=== PATIENT | female | born 1990 | race Caucasian/White ===

== ENCOUNTER → 2018-05-10 | Outpatient (CLI) | payer OTHER ==
--- NOTE | 2018-05-10 10:55 | US ---
EXAMINATION TYPE: US transvaginal DATE OF EXAM: 05/10/2018 COMPARISON: US CLINICAL HISTORY: R10.2 Pelvic Pain. Patient states sharp pain during intercourse. TECHNIQUE: Transvaginal (TV). Date of LMP: 04/25/2018 EXAM MEASUREMENTS: Uterus: 9.4 x 5.0 x 5.7 cm Endometrial Stripe: 1.0 cm Right Ovary: 2.9 x 2.4 x 3.3 cm Left Ovary: 3.7 x 2.1 x 1.4 cm 1. Uterus: Anteverted wnl 2. Endometrium: wnl 3. Right Ovary: dominant follicle measures 2.1 x 1.6 x 2.0 cm. 4. Left Ovary: wnl 5. Bilateral Adnexa: wnl 6. Posterior cul-de-sac: small amount of free fluid. IMPRESSION: 1. Dominant follicle right ovary. 2 small amount of free fluid identified.
== END | disposition home or self-care (01) ==
LOC: RADUSWWP 09:42
PROVIDERS: ATTEND Obstetrics & Gynecology
DX: R10.2 Pelvic and perineal pain (principal)
CPT/HCPCS: 76830

== ENCOUNTER → 2019-05-01 | Outpatient (CLI) | payer OTHER ==
--- NOTE | 2019-05-02 11:34 | US ---
EXAMINATION TYPE: Transabdominal DATE OF EXAM: 05/01/2019 2:42 PM COMPARISON: NONE CLINICAL HISTORY: O46.91 bleeding. Bleeding. Patient states positive test. No beta HCG avai lable. EXAM PERFORMED: Transabdominal (TA) EXAM MEASUREMENTS: GESTATIONAL AGE / DATING Physician Established: Not yet established Dates by LMP: LMP unknown Dates by First Scan: No previous this is first scan Dates by Current Scan for: No IUP seen at this time MATERNAL ANATOMY Uterus: 9.3 x 5.3 x 5.8 cm Right Ovary: 1.7 x 1.1 x 1.3 cm Left Ovary: 2.1 x 1.6 x 1.9 cm Post CDS / Adnexa: wnl Presence of free fluid: no Presence of corpus luteal cyst: no Presence of subchorionic bleed: no GESTATION / SURVEY IUP: No IUP seen at this time Date of LMP: unknown Beta HcG (if available): Not available at this time IMPRESSION: 1. Normal-appearing pelvic ultrasound. 2. No intrauterine gestation identified at this time. Correlate with the beta hCG.
== END | disposition home or self-care (01) ==
LOC: RADUSWWP 14:23
PROVIDERS: ATTEND Obstetrics & Gynecology
DX: O46.91 Antepartum hemorrhage, unspecified, first trimester (principal); Z3A.00 Weeks of gestation of pregnancy not specified
CPT/HCPCS: 76801

== ENCOUNTER → 2019-05-02 | Outpatient (CLI) | payer OTHER | END | disposition home or self-care (01) | LOC: LABWHC1 15:28 | PROVIDERS: ATTEND Obstetrics & Gynecology | DX: Z34.80 Encounter for supervision of other normal pregnancy, unspecified trimester (principal) | CPT/HCPCS: 36415; 84702 ==

== ENCOUNTER → 2019-05-04 | Outpatient (CLI) | payer OTHER | LOC: LABWHC1 11:41 | PROVIDERS: ATTEND Obstetrics & Gynecology | DX: Z34.80 Encounter for supervision of other normal pregnancy, unspecified trimester (principal); Z3A.00 Weeks of gestation of pregnancy not specified | CPT/HCPCS: 36415; 84702 ==

== ENCOUNTER → 2019-05-08 | Outpatient (CLI) | payer OTHER ==
[2019-05-08 10:07] LABS: Albumin 4.4 g/dL (3.5-5.0); Bilirubin, Delta 0.1 mg/dL (0.0-0.2); Bilirubin,Unconjugated 0.5 mg/dL (0.0-1.1); Total Bilirubin 0.6 mg/dL (0.2-1.3); Total Protein 7.1 g/dL (6.3-8.2)
[2019-05-08 10:09] LABS: HCT 39.2 % (34.0-46.0); HGB 13.3 gm/dL (11.4-16.0); MCH 30.6 pg (25.0-35.0); MCV 89.8 fL (80.0-100.0); Mean Platelet Volume 7.2; Platelet Count 192 k/uL (150-450); RBC 4.36 m/uL (3.80-5.40); RDW 11.9 % (11.5-15.5); WBC 5.7 k/uL (3.8-10.6)
[2019-05-08 10:23] LABS: HCG,Quantitative Serum 9407.1 mIU/mL
--- NOTE | 2019-05-08 10:27 | US ---
"EXAMINATION TYPE: US transvaginal DATE OF EXAM: 05/08/2019 COMPARISON: NONE CLINICAL HISTORY: O02.1 Missed . patient had LMP in February after she started control, b leeding started 1 week ago, beta HCG to be drawn today, no pain but still bleeding. TECHNIQUE: TV. Transvaginal sonographic images Date of LMP: February 2019 EXAM MEASUREMENTS: Uterus: 9.9 x 5.9 x 5.3 cm Endometrial Stripe: 0.6 cm Right Ovary: 2.7 x 1.7 x 1.2 cm Left Ovary: 2.5 x 2.3 x 2.3 cm 1. Uterus: Anteverted wnl 2. Endometrium: wnl 3. Right Ovary: wnl, posterior to fundal UT 4. Left Ovary: 2.2cm complex lesion that may represent a corpus luteal cyst versus hemorrhagic cyst 5. Bilateral Adnexa: 2.8cm complex mass noted inferior to left ovary, unsure if lesion is portion of left ovary or this could represent ectopic or paraovarian complex cyst. 6. Posterior cul-de-sac: wnl IMPRESSION: 2.8 cm complex mass that cannot be certainly included in the left ovarian measurement. Th is could be paraovarian in represent an ectopic or complex paraovarian cyst or may be part of the ovary. Correlation with serum beta hCG is recommended. A [place] level critical message alert has been initiated for Esvin Arriaga MD via the [employer] | Critical Results System on 05/08/2019 10:25 AM. This message alert has been sent to Esvin robertson MD via the preferences provided by the clinician for the receipt of Radiology Critical Findings. Message ID [id number]."
== END | disposition home or self-care (01) ==
LOC: RADUSWWP 08:20
PROVIDERS: ATTEND Obstetrics & Gynecology
DX: O02.1 Missed abortion (principal); O20.0 Threatened abortion
CPT/HCPCS: 76830; 80076; 84702; 85027

== ENCOUNTER → 2019-05-08 | Outpatient (CLI) | payer OTHER ==
[~2019-05-08] MED LIST: METHOTREXATE SODIUM (PF) 25 MG/ML 2 ML VIAL IM ONE
[2019-05-08 11:41] VITALS: BP 130/88; PULSE 84; RESP 14; TEMP 97.7
== END | disposition home or self-care (01) ==
LOC: PROCWHC3 11:26
PROVIDERS: ATTEND Obstetrics & Gynecology
DX: O00.90 Unspecified ectopic pregnancy without intrauterine pregnancy (principal)
CPT/HCPCS: 96402; J9260

== ENCOUNTER → 2019-05-14 | Outpatient (CLI) | payer OTHER ==
[2019-05-14 08:05] LABS: HCT 37.3 % (34.0-46.0); HGB 12.7 gm/dL (11.4-16.0); MCHC 34.1 g/dL (31.0-37.0); MCV 90.7 fL (80.0-100.0); Mean Platelet Volume 7.6; Platelet Count 159 k/uL (150-450); RBC 4.11 m/uL (3.80-5.40); RDW 12.2 % (11.5-15.5); WBC 5.5 k/uL (3.8-10.6)
== END | disposition home or self-care (01) ==
LOC: LABWHC1 07:47
PROVIDERS: ATTEND Obstetrics & Gynecology
DX: O00.90 Unspecified ectopic pregnancy without intrauterine pregnancy (principal)
CPT/HCPCS: 36415; 84702; 85027

== ENCOUNTER → 2019-05-21 | Outpatient (CLI) | payer OTHER | LOC: LABWHC1 16:46 | PROVIDERS: ATTEND Obstetrics & Gynecology | DX: O00.90 Unspecified ectopic pregnancy without intrauterine pregnancy (principal); Z3A.00 Weeks of gestation of pregnancy not specified | CPT/HCPCS: 36415; 84702 ==

== ENCOUNTER 2019-05-27 11:28 | Inpatient (IN) | payer OTHER ==
[2019-05-27] MEDS ORDERED: SODIUM CHLORIDE 0.9% 1,000 ML IV ONE ×2 (11:57)
[2019-05-27] MEDS ORDERED: MORPHINE SULFATE 4 MG/ML SYRINGE IV STA (11:57)
--- NOTE | 2019-05-27 12:00 | ED ---
Abdominal Pain HPI <Marcus Hernandez - Last Filed: 05/27/19 14:41> - General Source: patient, RN notes reviewed, old records reviewed Mode of arrival: ambulatory Limitations: no limitations <Mary Anne Madrid - Last Filed: 05/27/19 15:36> - General Chief Complaint: Abdominal Pain Stated Complaint: ectopic Time Seen by Provider: 05/27/19 11:53 - History of Present Illness Initial Comments: This Patient is a 28-year-old female, female. She presents today for concerns for severe left-sided lower abdominal pain that started today while eating breakfast. Patient reports that she was diagnosed with ectopic and was given methotrexate approximately one week ago. She reports that after her methotrexate administration her hCG levels have diminished and were down to 1600 on her last check. Patient reports that she was doing well up until today. She states that she developed sharp pain on her left side, and has the pain into her vagina and rectum. Patient complains of some nausea and feeling generally unwell and lightheaded. (Mary Anne Madrid) - Related Data Home Medications Medication Instructions Recorded Confirmed Acetaminophen Tab [Tylenol Tab] 1,000 mg PO Q4H PRN 05/27/19 05/27/19 Allergies Allergy/AdvReac Type Severity Reaction Status Date / Time No Known Allergies Allergy Verified 05/27/19 13:22 Review of Systems ROS Other: All systems not noted in ROS Statement are negative. <Marcus Hernandez - Last Filed: 05/27/19 14:41> ROS Other: All systems not noted in ROS Statement are negative. <Mary Anne Madrid - Last Filed: 05/27/19 15:36> ROS Statement: Those systems with pertinent positive or pertinent negative responses have been documented in the HPI. Past Medical History Past Medical History: No Reported History Additional Past Medical History / Comment(s): Ectopic 04/2019 History of Any Multi-Drug Resistant Organisms: None Reported Past Surgical History: No Surgical Hx Reported Past Anesthesia/Blood Transfusion Reactions: No Reported Reaction Past Psychological History: No Psychological Hx Reported Smoking Status: Former smoker - Past Family History Father Family Medical History: No Reported History <Mary Anne Madrid - Last Filed: 05/27/19 15:36> General Exam Limitations: no limitations General appearance: alert, in no apparent distress Head exam: Present: atraumatic, normocephalic, normal inspection Eye exam: Present: normal appearance, PERRL, EOMI. Absent: scleral icterus, conjunctival injection, periorbital swelling ENT exam: Present: normal exam, mucous membranes moist Neck exam: Present: normal inspection. Absent: tenderness, meningismus, lymphadenopathy Respiratory exam: Present: normal lung sounds bilaterally. Absent: respiratory distress, wheezes, rales, rhonchi, stridor Cardiovascular Exam: Present: regular rate, normal rhythm, normal heart sounds. Absent: systolic murmur, diastolic murmur, rubs, gallop, clicks GI/Abdominal exam: Present: soft, tenderness (Superpubic and left lower quadrant tenderness.), normal bowel sounds. Absent: distended, guarding, rebound, rigid External exam: Present: normal external exam. Absent: erythema Speculum exam: Present: normal speculum exam. Absent: cervical discharge, vaginal bleeding, foreign body By manual exam: Present: adnexal tenderness, adnexal mass (Patient had some m oderate tenderness over the left and right adnexa.) Extremities exam: Present: normal inspection, full ROM, normal capillary refill. Absent: tenderness, pedal edema, joint swelling, calf tenderness Back exam: Present: normal inspection Neurological exam: Present: alert, oriented X3, CN II-XII intact Psychiatric exam: Present: normal affect, normal mood Skin exam: Present: warm, dry, intact, normal color. Absent: rash <Mary Anne Madrid - Last Filed: 05/27/19 15:36> - General Exam Comments Initial Comments: 28-year-old female. Patient appears in moderate discomfort. (Mary Anne Madrid) Course Vital Signs 05/27/19 05/27/19 05/27/19 11:34 12:05 12:30 Temperature 97.8 F Pulse Rate 88 82 85 Respiratory 20 18 18 Rate Blood Pressure 99/44 137/81 137/81 O2 Sat by Pulse 100 99 100 Oximetry 05/27/19 05/27/19 05/27/19 13:00 13:30 14:00 Temperature Pulse Rate 80 76 80 Respiratory 18 18 18 Rate Blood Pressure 125/77 122/76 115/84 O2 Sat by Pulse 100 99 99 Oximetry 05/27/19 05/27/19 14:30 15:10 Temperature 98.2 F Pulse Rate 82 89 Respiratory 16 18 Rate Blood Pressure 103/62 128/75 O2 Sat by Pulse 99 98 Oximetry Medical Decision Making - Lab Data Result diagrams: 05/27/19 12:00 05/27/19 12:00 <Marcus Hernandez - Last Filed: 05/27/19 14:41> - Lab Data Result diagrams: 05/27/19 12:00 05/27/19 12:00 - Radiology Data Radiology results: report reviewed <Mary Anne Madrid - Last Filed: 05/27/19 15:36> - Medical Decision Making Patient reevaluated by myself, Dr. Hernandez. Patient states discomfort is moderate at this time. Abdomen is soft with mild to moderate tenderness lower abdomen/pelvis, more so on the left. Ultrasound reports reviewed. Beta hCG reviewed. Case was discussed in detail with Dr. Arriaga who is familiar with this patient and will come evaluate. (Marcus Hernandez) Patient is a 28-year-old female, . Currently undergoing treatment for ectopic . She had a dose of methotrexate approximately 2 weeks ago on her last hCG was 1600. She complains of sharp left-sided abdominal pain today. Instructed to emergency department with a low blood pressure of 90/45. She is given 2 L bolus and blood pressure came up. Initial lab work shows hCG level is dropped to 600. Hemoglobin is stable. She'll complain does show some concern for free fluid within the pelvis, and adnexal cystic like mass measuring 4 cm on the left and 6 cm on the right. states that she has continued to have the pain. She did receive 2 separate doses of 4 mg of morphine. We contacted patient's director of perioperative services Dr. Chapa who came to the emergency department to evaluate the Patient. Patient will admitted at this time and going to the OR for concern for ruptured ectopic . Patient is agreeable to treatment plan and understands plan. She is going directly to OR. (Mary Anne Madrid) - Lab Data Lab Results 05/27/19 05/27/19 05/27/19 Range/Units 12:00 12:00 12:00 WBC 4.9 (3.8-10.6) k/uL RBC 4.53 (3.80-5.40) m/uL Hgb 13.8 (11.4-16.0) gm/dL Hct 40.8 (34.0-46.0) % MCV 90.2 (80.0-100.0) fL MCH 30.5 (25.0-35.0) pg MCHC 33.8 (31.0-37.0) g/dL RDW 12.4 (11.5-15.5) % Plt Count 178 (150-450) k/uL Neutrophils % 53 % Lymphocytes % 35 % Monocytes % 5 % Eosinophils % 4 % Basophils % 1 % Neutrophils # 2.6 (1.3-7.7) k/uL Lymphocytes # 1.7 (1.0-4.8) k/uL Monocytes # 0.2 (0-1.0) k/uL Eosinophils # 0.2 (0-0.7) k/uL Basophils # 0.1 (0-0.2) k/uL PT (9.0-12.0) sec INR (<1.2) APTT (22.0-30.0) sec Sodium 140 (137-145) mmol/L Potassium 4.3 (3.5-5.1) mmol/L Chloride 105 (98-107) mmol/L Carbon Dioxide 27 (22-30) mmol/L Anion Gap 8 mmol/L BUN 15 (7-17) mg/dL Creatinine 0.88 (0.52-1.04) mg/dL Est GFR (CKD-EPI)AfAm >90 (>60 ml/min/1.73 sqM) Est GFR (CKD-EPI)NonAf 90 (>60 ml/min/1.73 sqM) Glucose 98 (74-99) mg/dL Calcium 9.5 (8.4-10.2) mg/dL Total Bilirubin 0.7 (0.2-1.3) mg/dL AST 21 (14-36) U/L ALT 33 (9-52) U/L Alkaline Phosphatase 43 (38-126) U/L Total Protein 7.1 (6.3-8.2) g/dL Albumin 4.5 (3.5-5.0) g/dL HCG, Quant 663.5 mIU/mL Urine Color Urine Appearance (Clear) Urine pH (5.0-8.0) Ur Specific [place] (1.001-1.035) Urine Protein (Negative) Urine Glucose (UA) (Negative) Urine Ketones (Negative) Urine Blood (Negative) Urine Nitrite (Negative) Urine Bilirubin (Negative) Urine Urobilinogen (<2.0) mg/dL Ur Leukocyte Esterase (Negative) Urine WBC (0-5) /hpf Urine Bacteria (None) /hpf Urine Mucus (None) /hpf Blood Type O Positive Blood Type Recheck O Pos Bld Type Recheck Status No Antibody Screen NEGATIVE Spec Expiration Date 05/30/2019 - 229905/27/19 05/27/19 Range/Units 12:00 13:21 WBC (3.8-10.6) k/uL RBC (3.80-5.40) m/uL Hgb (11.4-16.0) gm/dL Hct (34.0-46.0) % MCV (80.0-100.0) fL MCH (25.0-35.0) pg MCHC (31.0-37.0) g/dL RDW (11.5-15.5) % Plt Count (150-450) k/uL Neutrophils % % Lymphocytes % % Monocytes % % Eosinophils % % Basophils % % Neutrophils # (1.3-7.7) k/uL Lymphocytes # (1.0-4.8) k/uL Monocytes # (0-1.0) k/uL Eosinophils # (0-0.7) k/uL Basophils # (0-0.2) k/uL PT 10.0 (9.0-12.0) sec INR 0.9 (<1.2) APTT 24.9 (22.0-30.0) sec Sodium (137-145) mmol/L Potassium (3.5-5.1) mmol/L Chloride (98-107) mmol/L Carbon Dioxide (22-30) mmol/L Anion Gap mmol/L BUN (7-17) mg/dL Creatinine (0.52-1.04) mg/dL Est GFR (CKD-EPI)AfAm (>60 ml/min/1.73 sqM) Est GFR (CKD-EPI)NonAf (>60 ml/min/1.73 sqM) Glucose (74-99) mg/dL Calcium (8.4-10.2) mg/dL Total Bilirubin (0.2-1.3) mg/dL AST (14-36) U/L ALT (9-52) U/L Alkaline Phosphatase (38-126) U/L Total Protein (6.3-8.2) g/dL Albumin (3.5-5.0) g/dL HCG, Quant mIU/mL Urine Color Yellow Urine Appearance Clear (Clear) Urine pH 6.0 (5.0-8.0) Ur Specific [place] 1.012 (1.001-1.035) Urine Protein Negative (Negative) Urine Glucose (UA) Negative (Negative) Urine Ketones Negative (Negative) Urine Blood Negative (Negative) Urine Nitrite Negative (Negative) Urine Bilirubin Negative (Negative) Urine Urobilinogen <2.0 (<2.0) mg/dL Ur Leukocyte Esterase Trace H (Negative) Urine WBC 1 (0-5) /hpf Urine Bacteria Rare H (None) /hpf Urine Mucus Rare H (None) /hpf Blood Type Blood Type Recheck Bld Type Recheck Status Antibody Screen Spec Expiration Date Critical Care Time Critical Care Time: Yes Total Critical Care Time: 30 <Mary Anne Madrid - Last Filed: 05/27/19 15:36> Critical Care Time: 30 minutes of critical care time was completed with managing patient's care, consulting Patient specialist regards to concern for ruptured ectopic . Patient is going directly to OR. (Mary Anne Madrid) Disposition <Marcus Hernandez - Last Filed: 05/27/19 14:41> Is patient prescribed a controlled substance at d/c from ED?: No Time of Disposition: 15:36 <Mary Anne Madrid - Last Filed: 05/27/19 15:36> Clinical Impression: Ectopic , Free fluid in pelvis Disposition: ADMITTED IP TO THIS HOSP Condition: Good Referrals: Ángela Andrews MD [Primary Care Provider] - 1-2 days
[2019-05-27 12:17] LABS: Basophils # (A) 0.1 k/uL (0-0.2); Basophils % (A) 1 %; Eosinophils # (A) 0.2 k/uL (0-0.7); Eosinophils % (A) 4 %; HCT 40.8 % (34.0-46.0); HGB 13.8 gm/dL (11.4-16.0); Lymphocytes # (A) 1.7 k/uL (1.0-4.8); Lymphocytes % (A) 35 %; MCH 30.5 pg (25.0-35.0); MCHC 33.8 g/dL (31.0-37.0); MCV 90.2 fL (80.0-100.0); Mean Platelet Volume 8.1; Monocytes # (A) 0.2 k/uL (0-1.0); Monocytes % (A) 5 %; Neutrophils # (A) 2.6 k/uL (1.3-7.7); Neutrophils % (A) 53 %; Platelet Count 178 k/uL (150-450); RBC 4.53 m/uL (3.80-5.40); RDW 12.4 % (11.5-15.5); WBC 4.9 k/uL (3.8-10.6)
[2019-05-27 12:26] LABS: INR 0.9 (<1.2); Partial Thromboplastin Time 24.9 sec (22.0-30.0)
[2019-05-27 12:31] LABS: ALT 33 U/L (9-52); AST 21 U/L (14-36); African American GFR (CKD) >90 (>60 ml/min/1.73 sqM); Albumin 4.5 g/dL (3.5-5.0); Alkaline Phosphatase 43 U/L (38-126); Anion Gap 8 mmol/L; Blood Urea Nitrogen 15 mg/dL (7-17); Calcium 9.5 mg/dL (8.4-10.2); Carbon Dioxide 27 mmol/L (22-30); Chloride 105 mmol/L (98-107); Glucose 98 mg/dL (74-99); Non-African American GFR(CKD) 90 (>60 ml/min/1.73 sqM); Potassium 4.3 mmol/L (3.5-5.1); Sodium 140 mmol/L (137-145); Total Bilirubin 0.7 mg/dL (0.2-1.3); Total Protein 7.1 g/dL (6.3-8.2)
[2019-05-27 12:47] LABS: HCG,Quantitative Serum 663.5 mIU/mL
[2019-05-27 13:47] LABS: Appearance,Urine Clear (Clear); Bacteria,Urine Rare /hpf; Bilirubin,Urine Negative (Negative); Blood,Urine Negative (Negative); Color,Urine Yellow; Glucose,Urine (UA) Negative (Negative); Ketones,Urine Negative (Negative); Leukocyte Esterase,Urine Trace (Negative); Mucus,Urine Rare /hpf; Nitrite,Urine Negative (Negative); Protein,Urine Negative (Negative); Specific Gravity,Urine 1.012 (1.001-1.035); Urobilinogen,Urine <2.0 mg/dL (<2.0); WBC,Urine 1 /hpf (0-5)
--- NOTE | 2019-05-27 13:56 | US ---
EXAMINATION TYPE: Transabdominal DATE OF EXAM: 05/27/2019 1:18 PM COMPARISON:US CLINICAL HISTORY: pain, hx ectopic. left abdominal pain. Patient has been on methotrexate for 2 and 1/2 weeks for known ectopic, currently came to ER for rose re pelvic pain. EXAM PERFORMED: Transvaginal (TV) and Transabdominal (TA) EXAM MEASUREMENTS: GESTATIONAL AGE / DATING Physician Established: Not established ( Dates by LMP: LMP unknown Dates by First Scan: none ( Dates by Current Scan for: none MATERNAL ANATOMY Uterus: 9.6 x 4.6 x 6.1cm Right Ovary: 3.1 x 2.2 x 2.9cm Left Ovary: 2.8 x 2.1 x 2.5cm Post CDS / Adnexa: In right adnexa on transabdominal scan there appears to be a 6.6 x 3.3 x 6.0 cm co mplex mass, this could not be appreciated transvaginally. The cul de sac shows complex debris. In the left adnexa there is either a mass adjacent to or part of the left ovary. The mass measures 4.2 x 3. 1 x 3.3cm. Technologist unable to discern whether this is a part of the ovary or adjacent to. Presence of free fluid: mild fluid seen in right adnexa and small amount seen in left GESTATION / SURVEY IUP: no IUP identified Beta HcG (if available): Patient states this was going down currently 663. IMPRESSION: 1. WE HAVE NOT IDENTIFIED INTRAUTERINE GESTATION. 2. WE HAVE NOT EXCLUDED ECTOPIC IN EITHER ADNEXA. FURTHER FOLLOW-UP AND SERIAL BETA HCGS WO ULD BE SUGGESTED.
[2019-05-27] MEDS ORDERED: KETOROLAC 30 MG/ML 1 ML VIAL IVP STA (13:59)
[2019-05-27] MEDS ORDERED: MORPHINE SULFATE 4 MG/ML SYRINGE IVP STA ×2 (13:59)
--- NOTE | 2019-05-27 15:41 | P.HPOB ---
History of Present Illness H&P Date: 05/27/19 Chief Complaint: Lower abdominal pain, known ectopic This patient is a pleasant 28-year-old 2 para 1 female who was initially diagnosed several weeks ago with an ectopic . Patient's beta-hCG at that time was well over 9000 and she was clinically stable. Patient was given 100 mg of methotrexate. The first 2 weeks patient's initial response was excellent with decreasing beta hCGs. Patient also remained pain free. Patient states that this morning she began having onset of severe lower abdominal pain. She presented to the emergency department was found to have what appears to be rupturing ectopic with some most likely free fluid in her belly. Hemoglobin is stable. Vital signs are stable this time. Review of Systems Constitutional: Reports as per HPI Genitourinary: Reports as per HPI, Reports pelvic pain Past Medical History Past Medical History: No Reported History Additional Past Medical History / Comment(s): Ectopic 04/2019 History of Any Multi-Drug Resistant Organisms: None Reported Past Surgical History: No Surgical Hx Reported Past Anesthesia/Blood Transfusion Reactions: No Reported Reaction Past Psychological History: No Psychological Hx Reported Smoking Status: Former smoker Past Drug Use History: None Reported - Past Family History Father Family Medical History: No Reported History Medications and Allergies Home Medications Medication Instructions Recorded Confirmed Type Acetaminophen Tab [Tylenol Tab] 1,000 mg PO Q4H PRN 05/27/19 05/27/19 History Allergies Allergy/AdvReac Type Severity Reaction Status Date / Time No Known Allergies Allergy Verified 05/27/19 13:22 Exam Vital Signs Temp Pulse Resp BP Pulse Ox 05/27/19 15:10 98.2 F 89 18 128/75 98 05/27/19 14:30 82 16 103/62 99 05/27/19 14:00 80 18 115/84 99 05/27/19 13:30 76 18 122/76 99 05/27/19 13:00 80 18 125/77 100 05/27/19 12:30 85 18 137/81 100 05/27/19 12:05 82 18 137/81 99 05/27/19 11:34 97.8 F 88 20 99/44 100 Intake and Output 05/27/19 05/27/19 05/27/19 06:59 14:59 22:59 Other: Weight 95.254 kg - OBG Physical Exam Abdomen: Abdomen is tender to palpation. There is guarding but no rebound. Results Result Diagrams: 05/27/19 12:00 05/27/19 12:00 Abnormal Lab Results - Last 24 Hours (Table) 05/27/19 Range/Units 13:21 Ur Leukocyte Esterase Trace H (Negative) Urine Bacteria Rare H (None) /hpf Urine Mucus Rare H (None) /hpf Assessment and Plan Assessment: This is a pleasant 28-year-old 2 para 1 female with known ectopic who has developed severe lower abdominal pain and has failed medical therapy. Due to concern for rupturing ectopic at this time are going to proceed with exploratory laparotomy, possible salpingitis to me, possible salpingectomy. Patient understands I will do my best to preserve one or both of her tubes, however most likely she will need one tube removed. She understands the risks of the surgery including risks of infection, bleeding, possible DVT/PE. All the patient's questions been answered written consent is obtained. (1) Ectopic Current Visit: Yes Status: Acute Code(s): O00.90 - UNSPECIFIED ECTOPIC PREG RONEN WITHOUT INTRAUTERINE SNOMED Code(s): 34676310
[2019-05-27] MEDS ORDERED: ONDANSETRON 4 MG/2 ML VIAL ONE (16:08)
[2019-05-27] MEDS ORDERED: ROCURONIUM BROMIDE 10 MG/ML 10 ML VIAL IV ONE (16:08)
[2019-05-27] MEDS ORDERED: DEXAMETHASONE SOD PHOS (MDV) 100 MG/10 ML VIAL ONE (16:08)
[2019-05-27] MEDS ORDERED: PROPOFOL 10 MG/ML 20 ML VIAL IV ONE (16:08)
[2019-05-27] MEDS ORDERED: SUCCINYLCHOLINE CHLORIDE 100 MG/5 ML SYR IV ONE (16:08)
[2019-05-27] MEDS ORDERED: GLYCOPYRROLATE 0.2 MG/ML 2 ML VIAL ONE (16:08)
[2019-05-27] MEDS ORDERED: fentaNYL (PF) 50 MCG/ML 2 ML AMP ONE (16:08)
[2019-05-27] MEDS ORDERED: MIDAZOLAM 2 MG/2 ML VIAL ONE (16:08)
[2019-05-27] MEDS ORDERED: HYDROmorphone (PF) 1 MG/ML ONE (16:08)
[2019-05-27] MEDS ORDERED: LIDOCAINE 1% INJ 10MG/ML (20 ML MDV) ONE (16:08)
[2019-05-27] MEDS ORDERED: NEOSTIGMINE 1 MG/ML 10 ML VIAL ONE (16:08)
[2019-05-27] MEDS ORDERED: IV FLUID CONTINUATION 200 ML IV ONE (16:11)
[2019-05-27] MEDS ORDERED: METOCLOPRAMIDE 5 MG/ML 2 ML VIAL IVP ONE (16:15)
[2019-05-27] MEDS ORDERED: FAMOTIDINE 20 MG/2 ML VIAL IVP ONE (16:15)
[2019-05-27] MEDS ORDERED: LACTATED RINGERS 1,000 ML IV ONE (16:25)
[2019-05-27] MEDS ORDERED: MEPERIDINE 50 MG/ML SYRINGE IVP ONE (17:13)
[2019-05-27] MEDS ORDERED: HYDROmorphone 1 MG/ML 1 ML SYRINGE IVP ONE ×2 (17:17→17:23)
--- NOTE | 2019-05-27 17:18 | P.OP ---
Date of Procedure: 05/27/19 Preoperative Diagnosis: Abdominal pain with suspected ruptured ectopic failed medical therapy Postoperative Diagnosis: Same Procedure(s) Performed: Exploratory laparotomy with left salpingectomy, decision of ectopic , evacuation of hemoperitoneum Anesthesia: VERO Surgeon: Esvin Arriaga Estimated Blood Loss (ml): 25 Pathology: other (Left fallopian tube with ectopic ) Condition: stable Disposition: PACU Indications for Procedure: Please see dictated H&P for intimate details of this patient's admission. Brief summary this is a pleasant 28-year-old 2 para 1 female with known left ectopic who is status post methotrexate treatment approximately 3 weeks ago. Patient is doing well with decreasing beta hCGs but developed sudden onset of lower abdominal pain that earlier this morning. Patient presents emergency department was found to have what appears to be hemoperitoneum. Due to failed medical therapy and recommended proceed with surgical excision of this . Patient understands this surgery and risks including risks of in fection, bleeding, possible injury to bowel, bladder, vessels, and/or other organs. All the patient's questions are answered written consent is obtained. Operative Findings: This patient had approximately 2 cm left ectopic that was bleeding out the distal portion of fallopian tube. She approximately 150 mL of hemoperitoneum. Description of Procedure: This patient is taken to the operating room where she is laid in the supine position. She subsequently undergoes general endotracheal anesthesia without incident. With an adequate level of anesthesia she has a Campos catheter placed to straight drain. She then has abdominal prep and drape. Scalpels and taken a Pfannenstiel skin incision is made. A second scalpel is taken down the fascia the fascia scored with scalpel. Fascial incision extended bilaterally using the [place] scissors. Fascia is then dissected off the rectus muscles sharply. Rectus muscles are and the peritoneum identified and entered sharply. Peritoneal incision extended superior and inferior without difficulty. At this time is noted to be copious amount of blood in the abdomen which is evacuated. With this done the [place] retractor is placed gently. Bladder blade is placed. Visualization manually shows ectopic and left fallopian tube. Using a wet laparotomy sponge mobilize the bowels out of the pelvic field. Salazar is used to grab the left fallopian tube. There is approximately 8 to have centimeter ectopic appears be bleeding out the distal portion. The r ight fallopian tube appears completely normal. The pelvis appears completely normal as ovaries appear completely normal. This point is evident to remove the fallopian tube. 2 Heaneys are placed across the fallopian tube and the left fallopian tube with associated ectopic is excised. Using 0 Vicryl suture I do a locking stitch 2. Excellent hemostasis is noted. This time I copiously irrigated the pelvis. All clots that are able to removed our. Suspect the surgical site and the rest of the pelvis again all appears hemostatic. This point the procedure is ended. The laparotomy sponges removed. Cher retractor is removed. The rectus muscles reapproximated in 0 Vicryl interrupted fashion. Fascial incision is then closed using 0 PDS. Fascial incision is intact and hemostatic. Subcutaneous tissues and closed using a 3-0 Vicryl. Skin is and closed using karley. All counts are correct 3. There are no complications. Patient's taken recovery room satisfactory condition.
[2019-05-27] MEDS ORDERED: NALOXONE 0.4 MG/ML 1 ML VIAL IV PRN (17:46)
[2019-05-27] MEDS ORDERED: ONDANSETRON 4 MG/2 ML VIAL IVP PRN (17:46)
[2019-05-27] MEDS ORDERED: HYDROmorphone PCA 10 MG/50 ML BAG IV PRN (17:46)
[2019-05-27] MEDS ORDERED: diphenhydrAMINE 50 MG/ML 1 ML VIAL IVP PRN (17:46)
[2019-05-27] MEDS ORDERED: SIMETHICONE 80 MG CHEWABLE PO PRN (17:46)
[2019-05-27] MEDS ORDERED: IBUPROFEN 600 MG TAB PO PRN (17:46)
[2019-05-27 17:56] VITALS: BMI 32.8
[2019-05-27] MEDS: LACTATED RINGERS 1,000 ML IV SCH (19:08)
[2019-05-27] MEDS: KETOROLAC 30 MG/ML 1 ML VIAL IVP PRN (19:31)
[2019-05-28] MEDS: KETOROLAC 30 MG/ML 1 ML VIAL IVP PRN ×3 (01:47→14:44)
[2019-05-28] MEDS: LACTATED RINGERS 1,000 ML IV SCH (03:28)
--- NOTE | 2019-05-28 06:29 | P.PN ---
Progress Note - Text Progress Note Date: 05/28/19 Postoperative day #1. Patient is resting without complaints. Vital signs are stable she's afebrile. Incision is intact and dry. CBC is pending at time this dictation. Plan today is to encourage ambulation, advanced to a regular diet, check a CBC, allow the patient to shower. Anticipate discharge tomorrow if patient continues to do well.
[2019-05-28 06:55] LABS: Basophils % (A) 0 %; Eosinophils % (A) 0 %; HGB 11.1 gm/dL (11.4-16.0); Lymphocytes # (A) 0.7 k/uL (1.0-4.8); Lymphocytes % (A) 8 %; MCH 30.4 pg (25.0-35.0); MCHC 33.7 g/dL (31.0-37.0); MCV 90.2 fL (80.0-100.0); Mean Platelet Volume 8.3; Monocytes # (A) 0.5 k/uL (0-1.0); Monocytes % (A) 6 %; Neutrophils # (A) 7.4 k/uL (1.3-7.7); Neutrophils % (A) 85 %; Platelet Count 169 k/uL (150-450); RBC 3.66 m/uL (3.80-5.40); RDW 12.3 % (11.5-15.5); WBC 8.7 k/uL (3.8-10.6)
[2019-05-28] MEDS: HYDROcodone/APAP 5-325MG 1 EACH TAB PO PRN (09:35)
[2019-05-29] MEDS: LACTATED RINGERS 1,000 ML IV SCH (01:15)
[2019-05-29] MEDS: HYDROcodone/APAP 5-325MG 1 EACH TAB PO PRN (02:21)
--- NOTE | 2019-05-29 06:43 | P.PN ---
Progress Note - Text Progress Note Date: 05/29/19 Postoperative day #2. Patient is resting without complaints. Vital signs are stable she is afebrile. Incision is intact and dry. Hemoglobin yesterday was good. Patient is ambulating and urinating without difficulty and also tolerating regular diet. Patient wishes to go home today is felt be stable for discharge home follow up with me in about 1 week.
--- NOTE | 2019-05-29 06:55 | P.DS ---
Providers Date of admission: 05/27/19 15:23 Expected date of discharge: 05/29/19 Attending physician: Esvin Arriaga Primary care physician: Ángela Andrews - Discharge Diagnosis(es) (1) Ectopic Current Visit: Yes Status: Acute Hospital Course: Please see dictated H&P for intimate details of this patient's admission. Brief summary this pleasant 28-year-old female admitted through the emergency department with known ectopic now with severe lower abdominal pain. Patient was taken the operating room was found to have a rupturing left ectopic . Patient underwent evacuation of hemoperitoneum and removal of the left fallopian tube. Postoperative patient very well postoperative day #2 felt stable for discharge home follow up with me in 1 week. Procedures: Exploratory laparotomy and left salpingectomy with excision of ectopic Patient Condition at Discharge: Good Plan - Discharge Summary New Discharge Prescriptions: New Ibuprofen [Motrin] 600 mg PO Q6HR PRN #30 tab PRN Reason: Mild Discomfort HYDROcodone/APAP 5-325MG [[place] 5-325] 1 each PO Q4HR PRN #18 tab PRN Reason: Pain No Action Acetaminophen Tab [Tylenol Tab] 1,000 mg PO Q4H PRN PRN Reason: Pain Discharge Medication List Acetaminophen Tab [Tylenol Tab] 1,000 mg PO Q4H PRN 05/27/19 [History] HYDROcodone/APAP 5-325MG [[place] 5-325] 1 each PO Q4HR PRN #18 tab 05/29/19 [Rx] Ibuprofen [Motrin] 600 mg PO Q6HR PRN #30 tab 05/29/19 [Rx] Follow up Appointment(s)/Referral(s): Esvin Arriaga MD [STAFF PHYSICIAN] - 1 Week Patient Instructions/Handouts: Exploratory Laparotomy (DC) Activity/Diet/Wound Care/Special Instructions: No heavy lifting or strenuous activities for 6 weeks. Please call if any fever, chills, excessive vaginal bleeding, and/or abdominal pain.
[2019-05-29 09:45] VITALS: BP 142/70; PULSE 90; RESP 18; TEMP 98.6
== END 2019-05-29 10:40 | disposition home or self-care (01) | DRG 817 ==
LOC: EC 11:28 → 4FBP 15:23
PROVIDERS: ADMIT Obstetrics & Gynecology; ATTEND Obstetrics & Gynecology
PROC: 0UT60ZZ Resection of Left Fallopian Tube, Open Approach (ICD-10-PCS; principal; 2019-05-27 15:30)
PROC: 10T20ZZ Resection of Products of Conception, Ectopic, Open Approach (ICD-10-PCS; principal; 2019-05-27 15:30)
DX: O00.102 Left tubal pregnancy without intrauterine pregnancy (principal); K66.1 Hemoperitoneum; Z87.891 Personal history of nicotine dependence
CPT/HCPCS: 36415; 76801; 76817; 80053; 81001; 84702; 85025; 85610; 85730; 86850; 86900; 86901; 88305; 96361; 96374; 96375; 96376; 99291

== ENCOUNTER → 2020-05-13 | Outpatient (CLI) | payer OTHER ==
--- NOTE | 2020-05-14 07:12 | US ---
EXAMINATION TYPE: Transabdominal DATE OF EXAM: 05/13/2020 4:39 PM COMPARISON: NONE CLINICAL HISTORY: Confirm dates Z36.87. Confirm dates, pt has no complaints at this time EXAM PERFORMED: Transvaginal (TV) and Transabdominal (TA) EXAM MEASUREMENTS: GESTATIONAL AGE / DATING Physician Established: (8 weeks/2 days) EDC: 12/21/2020 Dates by LMP: Unknown Dates by First Scan: No prior Dates by Current Scan for: (6 weeks/3 days) EDC: 01/03/2021 MATERNAL ANATOMY Uterus: 11.4 x 6.0 x 6.0 cm Right Ovary: 2.5 x 1.9 x 1.6 cm Left Ovary: 2.2 x 1.6 x 1.7 cm Post CDS / Adnexa: wnl Presence of free fluid: No Presence of corpus luteal cyst: Right Ovary= 1.7 x 1.3 x 1.1 cm Presence of subchorionic bleed: No GESTATION / SURVEY CRL: 0.6 cm (6 weeks/3 days) MSD: wnl Yolk Sac (normal less than 6mm): 1mm Heart Rate: 91 bpm Rhythm: Arrhythmia IUP: Viable IUP Date of LMP: Unknown Single, viable IUP/ Heart rate low at 91 bpm, yolk sac small, appeared abnormal IMPRESSION: 1. Single viable intrauterine with a heart rate of only 91 bpm. But should be correlated cl inically. Estimated age of 6 weeks 3 days by current scan. Recommend correlation with serial be ta hCG and pelvic ultrasound.
== END | disposition home or self-care (01) ==
LOC: RADUSWWP 16:17
PROVIDERS: ATTEND Obstetrics & Gynecology
DX: Z36.87 Encounter for antenatal screening for uncertain dates (principal); Z3A.01 Less than 8 weeks gestation of pregnancy
CPT/HCPCS: 76801; 76817

== ENCOUNTER → 2020-05-20 | Outpatient (CLI) | payer OTHER ==
--- NOTE | 2020-05-20 11:22 | US ---
EXAMINATION TYPE: Transabdominal DATE OF EXAM: 05/20/2020 10:38 AM COMPARISON: NONE CLINICAL HISTORY: O76 ABN OR ABSENT HEART TONES. abnormal heart tones EXAM PERFORMED: Transvaginal (TV) and Transabdominal (TA) EXAM MEASUREMENTS: GESTATIONAL AGE / DATING Physician Established: Not yet established Dates by LMP: (9 weeks/2 days) EDC: 12/21/20 Dates by First Scan: (7 weeks/4 days) EDC: 01/03/21 Dates by Current Scan for: (6 weeks/2 days) EDC: 01/11/21 MATERNAL ANATOMY Uterus: 11.2 x 6.0 x 6.5cm Right Ovary: 3.3 x 1.7 x 2.5cm Left Ovary: 2.6 x 1.8 x 1.8cm Post CDS / Adnexa: appears wnl Presence of free fluid: no Presence of corpus luteal cyst: hypoechoic area right ovary = 1.4 x 1.6 x 1.6cm and complex area left ovary = 1.6 x 1.7 x 1.5cm GESTATION / SURVEY CRL: 0.5cm (6 weeks/2 days) Yolk Sac (normal less than 6mm): 0.9cm IUP: unable to detect heart tones at this time Date of LMP: 03/16/20 Beta HcG (if available): Not available at this time Unable to detect heart tones at this time. complex isoechoic area anterior gestational sac = 0. 8cm IMPRESSION: Findings suggest demise. Correlate clinically with serial beta hCG and/or ultrasound.
== END | disposition home or self-care (01) ==
LOC: RADUSWWP 10:07
PROVIDERS: ATTEND Obstetrics & Gynecology
DX: O76 Abnormality in fetal heart rate and rhythm complicating labor and delivery (principal); Z3A.01 Less than 8 weeks gestation of pregnancy
CPT/HCPCS: 76801; 76817

== ENCOUNTER → 2020-05-26 | Outpatient (CLI) | payer OTHER ==
[2020-05-26 16:20] LABS: Basophils % (A) 1 %; Eosinophils # (A) 0.3 k/uL (0-0.7); Eosinophils % (A) 4 %; HCT 39.3 % (34.0-46.0); HGB 12.8 gm/dL (11.4-16.0); Lymphocytes # (A) 1.9 k/uL (1.0-4.8); Lymphocytes % (A) 25 %; MCH 29.8 pg (25.0-35.0); MCHC 32.7 g/dL (31.0-37.0); MCV 91.3 fL (80.0-100.0); Mean Platelet Volume 9.4; Monocytes # (A) 0.3 k/uL (0-1.0); Monocytes % (A) 4 %; Neutrophils # (A) 4.8 k/uL (1.3-7.7); Neutrophils % (A) 65 %; Platelet Count 179 k/uL (150-450); RDW 12.7 % (11.5-15.5); WBC 7.4 k/uL (3.8-10.6)
== END | disposition home or self-care (01) ==
LOC: LABPAT 15:43
PROVIDERS: ATTEND Obstetrics & Gynecology
DX: Z01.818 Encounter for other preprocedural examination (principal)
CPT/HCPCS: 36415; 85025

== ENCOUNTER → 2020-05-28 | Day surgery (SDC) | payer OTHER ==
[2020-05-26 10:29] VITALS: BMI 29.7
--- NOTE | 2020-05-27 12:07 | P.HPOB ---
History of Present Illness H&P Date: 05/27/20 Chief Complaint: Missed This patient is a pleasant 29-year-old 3 para 1 female who presented to my office for care initially was found to have a intrauterine but had a low heart rate. Subsequent follow-up ultrasound shows no cardiac activity consistent with a missed . Patient is requesting suction D&C for treatment at this time. Review of Systems Genitourinary: Reports Menstruation: Reports amenorrhea Past Medical History Past Medical History: No Reported History Additional Past Medical History / Comment(s): Ectopic 04/2019, current missed Ab; patient's first was a 8 lbs. 14 oz. vaginal delivery. History of Any Multi-Drug Resistant Organisms: None Reported Past Surgical History: No Surgical Hx Reported Additional Past Surgical History / Comment(s): surg for ectopic Past Anesthesia/Blood Transfusion Reactions: No Reported Reaction Past Psychological History: No Psychological Hx Reported Smoking Status: Former smoker Past Alcohol Use History: None Reported Past Drug Use History: None Reported - Past Family History Father Family Medical History: No Reported History Medications and Allergies Home Medications Medication Instructions Recorded Confirmed Type No Known Home Medications 05/26/20 05/26/20 History Allergies Allergy/AdvReac Type Severity Reaction Status Date / Time No Known Allergies Allergy Verified 05/26/20 10:27 Exam - OBG Physical Exam Abdomen: bowel sounds normal, no diffuse tenderness, no bruit present, no gu arding noted, no hepatomegaly, no splenomegaly, no mass Vulva: both: normal Vagina: normal moisture, no discharge Cervix: no lesion, no discharge Uterus: enlarged (Uterus is approximately 7 weeks' size.) Results Ultrasound shows a intrauterine approximately 6 weeks' size with no heart tones. Blood type is Rh+. Assessment and Plan Assessment: This is a pleasant 29-year-old 3 para 1 female approximately 6-7 weeks gestation with a missed . Patient I discussed options including expectant management versus suction D&C for treatment she is requested D&C. Patient understands this surgery and risks including risks of infection, bleeding, and/or uterine perforation. All the patient's questions are answered and a written consent is obtained. (1) Missed Status: Acute Code(s): O02.1 - MISSED SNOMED Code(s): 85344119
[~2020-05-28] MED LIST changes: +DEXAMETHASONE SOD PHOSPHATE 4 MG/ML 1 ML VIAL IV ONE; +HYDROmorphone 0.5 MG/0.5 ML SYRINGE IVP PRN; +KETOROLAC 15 MG/ML 1 ML VIAL ONE; +LACTATED RINGERS 1,000 ML IV ONE; +LACTATED RINGERS 1,000 ML IV SCH; +LIDOCAINE 1% INJ 10MG/ML (20 ML MDV) ONE; -METHOTREXATE SODIUM (PF) 25 MG/ML 2 ML VIAL IM ONE; +MIDAZOLAM 2 MG/2 ML VIAL IVP ONE; +MIDAZOLAM 2 MG/2 ML VIAL ONE; +ONDANSETRON 4 MG/2 ML VIAL IVP ONE; +PROPOFOL 10 MG/ML 20 ML VIAL IV ONE; +Pre Op ABX Message 1 EACH MISC MISCELLANE ONE; +SCOPOLAMINE 1.5MG/72HR PATCH TRANSDERM ONE; +fentaNYL (PF) 50 MCG/ML 2 ML AMP ONE
--- NOTE | 2020-05-28 08:57 | P.OP ---
Date of Procedure: 05/28/20 Preoperative Diagnosis: Portion Postoperative Diagnosis: Same Procedure(s) Performed: Suction D&C Anesthesia: MAC Surgeon: Esvin Arriaga Estimated Blood Loss (ml): 100 Urine output (ml): 125 Pathology: other (Uterine contents) Condition: stable Disposition: PACU Indications for Procedure: Please see dictated H&P for intimate details of this patient's admission. Brief summary is a pleasant 29-year-old 3 para 1 female estimated gestational age excellently 6 weeks with a nonviable intrauterine consistent with a missed . Patient I discussed options for treatment including expectant management versus suction D&C and she wishes to proceed with D&C for treatment. Patient understands the surgery and risks and risks of infection, bleeding, possible uterine perforation. All the patient's questions have been answered and a written consent is obtained Operative Findings: Uterine contents were consistent with products of conception Description of Procedure: This patient is taken to the operating room she is laid in the supine position. She subsequently undergoes general mask anesthesia without incident. An adequate level of anesthesia was placed in dorsal lithotomy position. She has a vaginal perineal prep and drape. Examination under anesthesia shows a mid position uterus slightly enlarged. Bladder is drained this time for 125 mL of clear urine. Weighted speculum was then placed in the posterior vagina. The anterior lip the cervix is then grabbed with an Allis clamp. I gently dilate the endocervix to allow a 8 curved suction curette easily and the uterine cavity. Suction is applied and a generous amount of tissue is removed. Multiple passes are made to no further tissue was noted. A gentle but thorough 4 quadrant curettage is then done and again no further tissue was noted. This point the bleeding subsides. The Allis clamp and weighted speculum were removed. All counts are correct 3. There are no complications. Patient is awakened from anesthesia and taken recovery room in satisfactory condition
[2020-05-28 09:09] VITALS: TEMP 97.9
[2020-05-28 09:19] VITALS: RESP 16
[2020-05-28 10:28] VITALS: BP 108/76; PULSE 74
== END | disposition home or self-care (01) ==
LOC: OR 07:15
PROVIDERS: ATTEND Obstetrics & Gynecology
DX: O02.1 Missed abortion (principal); Z3A.01 Less than 8 weeks gestation of pregnancy; Z87.891 Personal history of nicotine dependence; Z90.721 Acquired absence of ovaries, unilateral; Z87.59 Personal history of other complications of pregnancy, childbirth and the puerperium
CPT/HCPCS: 88305; 59820; J2250; J1100; J2405; J2001; J3010; J1885; J2704; J1170; 86850; 86900; 86901

== ENCOUNTER 2021-08-07 18:04 | Emergency (ER) | payer BC, OTHER ==
[2021-08-07 18:09] VITALS: TEMP 98.3
[2021-08-07 18:28] LABS: Appearance,Urine Clear (Clear); Bilirubin,Urine Negative (Negative); Blood,Urine Negative (Negative); Color,Urine Light Yellow; Glucose,Urine (UA) Negative (Negative); Ketones,Urine Negative (Negative); Leukocyte Esterase,Urine Negative (Negative); Nitrite,Urine Negative (Negative); PH, Urine 6.5 (5.0-8.0); Protein,Urine Negative (Negative); Specific Gravity,Urine 1.004 (1.001-1.035); Urobilinogen,Urine <2.0 mg/dL (<2.0)
[2021-08-07] MEDS ORDERED: SODIUM CHLORIDE 0.9% 1,000 ML IV STA (18:28)
[2021-08-07 19:05] LABS: Basophils % (A) 0 %; Eosinophils # (A) 0.1 k/uL (0-0.7); Eosinophils % (A) 2 %; HCT 36.2 % (34.0-46.0); HGB 12.4 gm/dL (11.4-16.0); Lymphocytes % (A) 17 %; MCH 30.5 pg (25.0-35.0); MCHC 34.4 g/dL (31.0-37.0); MCV 88.9 fL (80.0-100.0); Mean Platelet Volume 9.4; Monocytes # (A) 0.3 k/uL (0-1.0); Monocytes % (A) 5 %; Neutrophils # (A) 4.3 k/uL (1.3-7.7); Neutrophils % (A) 73 %; Platelet Count 148 k/uL (150-450); RBC 4.08 m/uL (3.80-5.40); RDW 13.2 % (11.5-15.5); WBC 5.8 k/uL (3.8-10.6)
[2021-08-07 19:15] LABS: ALT 36 U/L (4-34); AST 30 U/L (14-36); African American GFR (CKD) >90 (>60 ml/min/1.73 sqM); Albumin 3.9 g/dL (3.5-5.0); Alkaline Phosphatase 59 U/L (38-126); Anion Gap 6 mmol/L; Blood Urea Nitrogen 9 mg/dL (7-17); Calcium 9.3 mg/dL (8.4-10.2); Carbon Dioxide 22 mmol/L (22-30); Chloride 106 mmol/L (98-107); Glucose 91 mg/dL (74-99); Non-African American GFR(CKD) >90 (>60 ml/min/1.73 sqM); Potassium 3.8 mmol/L (3.5-5.1); Sodium 134 mmol/L (137-145); Total Bilirubin 0.5 mg/dL (0.2-1.3); Total Protein 6.5 g/dL (6.3-8.2)
--- NOTE | 2021-08-07 19:20 | ED ---
Female Urogenital HPI - General Chief complaint: Vaginal Bleeding Stated complaint: 18 weeks preg, bleeding Time Seen by Provider: 08/07/21 18:27 Source: patient, RN notes reviewed Mode of arrival: ambulatory Limitations: no limitations - History of Present Illness Initial comments: This is a pleasant 30-year-old female who is A2. Patient has had a previous miscarriage and a previous ectopic . Patient presents today with vaginal spotting. Patient had an ultrasound or numbness regnancy 5 weeks. 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 Patient has been placed on blood pressure medication by her continuity coordinator. She called the office today was sent in for evaluation by Dr. Dash. Patient normally sees Dr. Arriaga. No headache, no fever or chills, no changes in vision or hearing, no sore throat or difficulty with speech, no neck pain, no chest pain or shortness of breath, no abdominal pain, no nausea or vomiting, no changes in urination or bowel movements, no numbness or tingling, no extremity pain, no skin rashes or lesions. No palpitation, no lightheadedness, no syncope. Denies any significant pain - Related Data Home Medications Medication Instructions Recorded Confirmed Acetaminophen Tab [Tylenol Tab] 1,000 mg PO Q8H PRN 08/07/21 08/07/21 Aspirin EC [Ecotrin Low Dose] 81 mg PO HS 08/07/21 08/07/21 Allergies Allergy/AdvReac Type Severity Reaction Status Date / Time No Known Allergies Allergy Verified 08/07/21 18:46 Review of Systems ROS Statement: Those systems with pertinent positive or pertinent negative responses have been documented in the HPI. ROS Other: All systems not noted in ROS Statement are negative. Past Medical History Past Medical History: No Reported History Additional Past Medical History / Comment(s): Ectopic 04/2019, current missed Ab History of Any Multi-Drug Resistant Organisms: None Reported Past Surgical History: No Surgical Hx Reported Additional Past Surgical History / Comment(s): surg for ectopic Past Anesthesia/Blood Transfusion Reactions: No Reported Reaction Past Psychological History: No Psychological Hx Reported Smoking Status: Former smoker Past Alcohol Use History: Occasional Past Drug Use History: None Reported - Past Family History Father Family Medical History: No Reported History General Exam Limitations: no limitations General appearance: alert, in no apparent distress Head exam: Present: atraumatic, normocephalic, normal inspection Eye exam: Present: normal appearance, PERRL, EOMI. Absent: scleral icterus, conjunctival injection, periorbital swelling ENT exam: Present: normal exam, mucous membranes moist Neck exam: Present: normal inspection, full ROM. Absent: tenderness, meningismus, lymphadenopathy Respiratory exam: Present: normal lung sounds bilaterally. Absent: respiratory distress, wheezes, rales, rhonchi, stridor Cardiovascular Exam: Present: regular rate, normal rhythm, normal heart sounds. Absent: systolic murmur, diastolic murmur, rubs, gallop, clicks GI/Abdominal exam: Present: soft, normal bowel sounds. Absent: distended, tenderness, guarding, rebound, rigid External exam: Present: normal external exam. Absent: erythema, swelling, lesions, lacerations Speculum exam: Present: normal speculum exam, other (Chaperoned by a female RN Alley, negative tests for premature rupture of membranes. No bleeding.). Absent: erythema, vaginal discharge, cervical discharge, vaginal bleeding, foreign body, laceration Extremities exam: Present: normal inspection, full ROM, normal capillary refill. Absent: tenderness, pedal edema, joint swelling, calf tenderness Back exam: Present: normal inspection Neurological exam: Present: alert, oriented X3, CN II-XII intact Psychiatric exam: Present: normal affect, normal mood Skin exam: Present: warm, dry, intact, normal color. Absent: rash Course Vital Signs 08/07/21 08/07/21 08/07/21 18:05 19:27 20:00 Temperature 98.3 F Pulse Rate 104 H 84 73 Respiratory 20 18 18 Rate Blood Pressure 141/89 139/102 142/91 O2 Sat by Pulse 100 100 96 Oximetry - Reevaluation(s) Reevaluation #1: 08/07/21 20:59 Medical record is reviewed Patient has remained hemodynamic stable and has had no bleeding here in the ER. Patient is informed of results and questions answered Patient in no distress Medical Decision Making - Medical Decision Making Patient presents with mild vaginal bleeding. States it only happens when she is wiping. Small amount of pink on the tissue. No vaginal leakage. No pelvic or abdominal pain. 18 weeks . General blood work, type and screen, ultrasound ordered. Plan for OB consultation. Note that the patient's blood pressure is 141/89. Patient does have mildly low platelets at 148,000. Ultrasound reveals single live intrauterine at 18 weeks 5 days. heart rate is 158. Placenta previa is present. Case was discussed in detail with the military aircraft designer, , Dr. Dash who is on-call for Dr. Arriaga. , All findings were discussed. Initially placed on pelvic rest for a period of time until she is cleared by Dr. Arriaga. All findings discussed with the patient. Return if follow-up plan were discussed in detail. Patient voiced understanding. No bimanual examination was done. Patient was told to return to the ER for any signs or symptoms worsen. Told to return immediately if any other problems arise. All questions answered. Treatment plan discussed. Patient in agreement ED attending physician is Dr. Thomson - Lab Data Result diagrams: 08/07/21 19:00 08/07/21 19:00 Lab Results 08/07/21 08/07/21 08/07/21 Range/Units 18:20 18:20 19:00 WBC 5.8 (3.8-10.6) k/uL RBC 4.08 (3.80-5.40) m/uL Hgb 12.4 (11.4-16.0) gm/dL Hct 36.2 (34.0-46.0) % MCV 88.9 (80.0-100.0) fL MCH 30.5 (25.0-35.0) pg MCHC 34.4 (31.0-37.0) g/dL RDW 13.2 (11.5-15.5) % Plt Count 148 L (150-450) k/uL MPV 9.4 Neutrophils % 73 % Lymphocytes % 17 % Monocytes % 5 % Eosinophils % 2 % Basophils % 0 % Neutrophils # 4.3 (1.3-7.7) k/uL Lymphocytes # 1.0 (1.0-4.8) k/uL Monocytes # 0.3 (0-1.0) k/uL Eosinophils # 0.1 (0-0.7) k/uL Basophils # 0.0 (0-0.2) k/uL Sodium (137-145) mmol/L Potassium (3.5-5.1) mmol/L Chloride (98-107) mmol/L Carbon Dioxide (22-30) mmol/L Anion Gap mmol/L BUN (7-17) mg/dL Creatinine (0.52-1.04) mg/dL Est GFR (CKD-EPI)AfAm (>60 ml/min/1.73 sqM) Est GFR (CKD-EPI)NonAf (>60 ml/min/1.73 sqM) Glucose (74-99) mg/dL Calcium (8.4-10.2) mg/dL Total Bilirubin (0.2-1.3) mg/dL AST (14-36) U/L ALT (4-34) U/L Alkaline Phosphatase (38-126) U/L Total Protein (6.3-8.2) g/dL Albumin (3.5-5.0) g/dL Urine Color Light Yellow Urine Appearance Clear (Clear) Urine pH 6.5 (5.0-8.0) Ur Specific Dennis 1.004 (1.001-1.035) Urine Protein Negative (Negative) Urine Glucose (UA) Negative (Negative) Urine Ketones Negative (Negative) Urine Blood Negative (Negative) Urine Nitrite Negative (Negative) Urine Bilirubin Negative (Negative) Urine Urobilinogen <2.0 (<2.0) mg/dL Ur Leukocyte Esterase Negative (Negative) Urine HCG, Qual Detected (Not Detectd) Blood Type Blood Type Recheck Bld Type Recheck Status Antibody Screen Spec Expiration Date 08/07/21 08/07/21 Range/Units 19:00 19:00 WBC (3.8-10.6) k/uL RBC (3.80-5.40) m/uL Hgb (11.4-16.0) gm/dL Hct (34.0-46.0) % MCV (80.0-100.0) fL MCH (25.0-35.0) pg MCHC (31.0-37.0) g/dL RDW (11.5-15.5) % Plt Count (150-450) k/uL MPV Neutrophils % % Lymphocytes % % Monocytes % % Eosinophils % % Basophils % % Neutrophils # (1.3-7.7) k/uL Lymphocytes # (1.0-4.8) k/uL Monocytes # (0-1.0) k/uL Eosinophils # (0-0.7) k/uL Basophils # (0-0.2) k/uL Sodium 134 L (137-145) mmol/L Potassium 3.8 (3.5-5.1) mmol/L Chloride 106 (98-107) mmol/L Carbon Dioxide 22 (22-30) mmol/L Anion Gap 6 mmol/L BUN 9 (7-17) mg/dL Creatinine 0.71 (0.52-1.04) mg/dL Est GFR (CKD-EPI)AfAm >90 (>60 ml/min/1.73 sqM) Est GFR (CKD-EPI)NonAf >90 (>60 ml/min/1.73 sqM) Glucose 91 (74-99) mg/dL Calcium 9.3 (8.4-10.2) mg/dL Total Bilirubin 0.5 (0.2-1.3) mg/dL AST 30 (14-36) U/L ALT 36 H (4-34) U/L Alkaline Phosphatase 59 (38-126) U/L Total Protein 6.5 (6.3-8.2) g/dL Albumin 3.9 (3.5-5.0) g/dL Urine Color Urine Appearance (Clear) Urine pH (5.0-8.0) Ur Specific Dennis (1.001-1.035) Urine Protein (Negative) Urine Glucose (UA) (Negative) Urine Ketones (Negative) Urine Blood (Negative) Urine Nitrite (Negative) Urine Bilirubin (Negative) Urine Urobilinogen (<2.0) mg/dL Ur Leukocyte Esterase (Negative) Urine HCG, Qual (Not Detectd) Blood Type O Positive Blood Type Recheck O Pos Bld Type Recheck Status No Antibody Screen NEGATIVE Spec Expiration Date 08/10/20212299 - Radiology Data Radiology results: report reviewed, image reviewed Disposition Clinical Impression: Vaginal bleeding before 22 weeks gestation, Placenta previa Disposition: HOME SELF-CARE Condition: Stable Instructions (If sedation given, give patient instructions): Threatened Miscarriage (ED), Placenta Previa (ED) Additional Instructions: Patient is an 87-year-old female past medical history of dementia who presents emergency department from [facility]. Staff states that they went into the patient's room after they heard a loud thump and found her on the floor. Staff stated that she was unresponsive however when EMS arrived she was alert and acting at her baseline. Patient is mostly nonverbal and only nods to answer some questions at baseline. Patient had an abrasion to her bottom lip. Patient denies any complaints. She was seen 2 days ago at our facility for weakness. She was Covid positive as of the . Remainder of HPI is limited due to the patients medical condition. (Catrachita Lira) Is patient prescribed a controlled substance at d/c from ED?: No Referrals: Esvin Arriaga MD [STAFF PHYSICIAN] - 08/12/21 Time of Disposition: 20:53
[2021-08-07 19:28] VITALS: RESP 18
--- NOTE | 2021-08-07 19:45 | US ---
EXAMINATION TYPE: US OB >= 14 wk fetus DATE OF EXAM: 08/07/2021 COMPARISON: None CLINICAL HISTORY: Vaginal bleeding, ?18 weeksVaginal bleeding starting today TECHNIQUE: Transabdominal (TA) GESTATIONAL AGE / DATING Dates by LMP: (18 weeks/1 days) EDC: 01/07/2022 Dates by Current Scan: (18 weeks/5 days) EDC: 01/03/2022 Beta HCG (if available): Not available at this time SURVEY IUP: Single PLACENTA: Posterior PREVIA: Complete ISAAC: 12 cm Normal CERVICAL LENGTH (transabdominal: norm > 3.0cm): 3.6 cm BIOMETRY PRESENTATION: Breech LIE: Longitudinal BPD: 4.1 cm 18 weeks / 4 days HC: 15.4 cm 18 weeks / 3 days AC: 13.2 cm 18 weeks / 5 days FL: 2.8 cm 18 weeks / 5 days ESTIMATED WEIGHT IN GRAMS: 250 grams ESTIMATED WEIGHT IN LBS/OZ: 0 lbs. 9 oz. WEIGHT PERCENTAGE BASED ON ESTABLISHED DATES: 75% HC/AC: 1.2 Normal FL/AC: 21 Normal HEART RATE: 158 bpm RHYTHM: Normal Single live IUP, Placenta previa present IMPRESSION: 1. Single live intrauterine as described above. 2. Placenta previa
[2021-08-07 20:01] VITALS: PULSE 73
[2021-08-07 21:32] VITALS: BP 133/78
[2021-08-10 14:24] LABS: C. trachomatis,PCR Negative (Neg,Equiv); Chlamydia trachomatis Source Vagina; N. gonorrhoeae,PCR Negative (Neg,Equiv); Neisseria Source Vagina
== END 2021-08-07 21:32 | disposition home or self-care (01) ==
LOC: EC 18:04
DX: O44.12 Complete placenta previa with hemorrhage, second trimester (principal); Z3A.18 18 weeks gestation of pregnancy; Z67.40 Type O blood, Rh positive; Z87.891 Personal history of nicotine dependence; Z79.82 Long term (current) use of aspirin
CPT/HCPCS: 36415; 76805; 80053; 81003; 81025; 85025; 86850; 86900; 86901; 87491; 87591; 96360; 96361; 99284

== ENCOUNTER 2021-12-29 23:13 | Inpatient (IN) | payer BC, OTHER ==
[2021-12-30] MEDS: LACTATED RINGERS 1,000 ML IV SCH ×4 (00:42→22:25)
[2021-12-30 01:30] LABS: Basophils % (A) 0 %; Eosinophils # (A) 0.1 k/uL (0-0.7); Eosinophils % (A) 1 %; HCT 31.6 % (34.0-46.0); HGB 10.9 gm/dL (11.4-16.0); Lymphocytes # (A) 1.4 k/uL (1.0-4.8); Lymphocytes % (A) 16 %; MCHC 34.4 g/dL (31.0-37.0); MCV 89.9 fL (80.0-100.0); Mean Platelet Volume 9.7; Monocytes # (A) 0.4 k/uL (0-1.0); Monocytes % (A) 4 %; Neutrophils # (A) 6.7 k/uL (1.3-7.7); Neutrophils % (A) 77 %; Platelet Count 181 k/uL (150-450); Poikilocytosis Slight; RBC 3.51 m/uL (3.80-5.40); RDW 13.4 % (11.5-15.5); WBC 8.8 k/uL (3.8-10.6)
[2021-12-30] MEDS ORDERED: ONDANSETRON 4 MG/2 ML VIAL ONE (05:54)
[2021-12-30] MEDS ORDERED: OXYTOCIN 30 UNITS/500 ML NS BAG IV ONE (05:54)
[2021-12-30] MEDS ORDERED: MORPHINE SULFATE (PF) 0.3 MG/0.3 ML SYR ONE (05:54)
[2021-12-30] MEDS ORDERED: KETOROLAC 15 MG/ML 1 ML VIAL ONE (05:54)
[2021-12-30] MEDS ORDERED: NALBUPHINE 10 MG/ML (1 ML AMP) ONE (05:54)
--- NOTE | 2021-12-30 05:55 | P.HPOB ---
History of Present Illness H&P Date: 12/30/21 Chief Complaint: Spontaneous rupture of membranes This is a 31-year-old female 4 para 1 at 38-5/7 weeks with an estimated date of confinement of 01/07/2022 who presents to labor and delivery with complaints of spontaneous rupture of membranes at approximately 2200. She initially was feeling some mild cramping but now is feeling stronger contractions. care has been with Dr. Arriaga and initially was complicated by possible previa. This has resolved on later ultrasounds however the baby is in a breech presentation. Breech presentation was confirmed in triage on admission. labs: GC/shelby/Trichomonas-negative Hepatitis B surface antigen-negative RPR-nonreactive Rubella-immune Blood type-O+ Antibody screen-negative HIV-nonreactive Hemoglobin-13.8 Obstetrical ultrasound-normal anatomy One hour Glucola-107 Group B streptococcus-negative Obstetrical history: . History of 1 vaginal delivery at term. She also has a history of 1 miscarriage and 1 ectopic on her left side that did require removal of her left tube. Gynecologic history: No history of sexual transmitted diseases Social history: She is . She works at a [employer]. Review of Systems Constitutional: Denies chills, Denies fever Eyes: denies blurred vision, denies pain Ears, nose, mouth and throat: Denies headache, Denies sore throat Cardiovascular: Denies chest pain, Denies shortness of breath Respiratory: Denies cough Gastrointestinal: Reports abdominal pain (Contractions) Genitourinary: Reports pelvic pain, Reports Musculoskeletal: Reports low back pain Integumentary: Denies pruritus, Denies rash Neurological: Denies numbness, Denies weakness Psychiatric: Denies anxiety, Denies depression Past Medical History Past Medical History: No Reported History Additional Past Medical History / Comment(s): Ectopic 04/2019, missed 2019 History of Any Multi-Drug Resistant Organisms: None Reported Past Surgical History: No Surgical Hx Reported Additional Past Surgical History / Comment(s): L salpingectomy 2018, wisdom teeth removed 2015, D&C Past Anesthesia/Blood Transfusion Reactions: No Reported Reaction Past Psychological History: No Psychological Hx Reported Smoking Status: Former smoker Past Alcohol Use History: Occasional Additional Past Alcohol Use History / Comment(s): quit smoking 5 yrs. ago, smoked 3-4 yrs. <ppd Past Drug Use History: None Reported - Past Family History Father Family Medical History: No Reported History Medications and Allergies Home Medications Medication Instructions Recorded Confirmed Type Acetaminophen/Diphenhydramine 1 tab PO HS 12/29/21 12/29/21 History [Tylenol PM 500-25mg] Allergies Allergy/AdvReac Type Severity Reaction Status Date / Time No Known Allergies Allergy Verified 12/29/21 23:19 Exam Osteopathic Statement: *. No significant issues noted on an osteopathic structural exam other than those noted in the History and Physical/Consult. Vital Signs Temp Pulse Resp BP Pulse Ox 12/30/21 00:43 98.8 F 89 16 134/79 98 Intake and Output 12/29/21 12/29/21 12/30/21 14:59 22:59 06:59 Other: Weight 113.398 kg HEENT: Within normal limits Heart: Regular rate and rhythm Lungs: Clear to auscultation bilaterally Abdomen: Cervix: 1-1/2 cm/50%/-2 station. Positive amnisure with clear fluid noted. heart tones: Category 1 Contractions: Irregular every 4-6 minutes Extremities: Negative Homans Results Result Diagrams: 12/30/21 00:45 Abnormal Lab Results - Last 24 Hours (Table) 12/30/21 Range/Units 00:45 RBC 3.51 L (3.80-5.40) m/uL Hgb 10.9 L (11.4-16.0) gm/dL Hct 31.6 L (34.0-46.0) % Assessment and Plan (1) 38 weeks gestation of Current Visit: Yes Status: Acute Code(s): Z3A.38 - 38 WEEKS GESTATION OF SNOMED Code(s): 20849931 (2) Spontaneous rupture of membranes Current Visit: Yes Status: Acute Code(s): PRT5096 - SNOMED Code(s): 664733971 (3) Breech presentation Current Visit: Yes Status: Acute Code(s): O32.1XX0 - MATERNAL CARE FOR BREECH PRESENTATION, UNSP SNOMED Code(s): 9546366 Plan: Admission for spontaneous rupture membranes. Since patient is not currently in labor on arrival, will wait at least 8 hours since she last ate. Plan for primary low transverse section. I have discussed the risks, benefits, and alternative therapies for the above-mentioned procedure and for both sedation/anesthesia as well as necessary blood products administration, if indicated, as they pertain to this patient. The patient has indicated her understanding and acceptance of the risks and procedures discussed.
[2021-12-30] MEDS ORDERED: CITRIC ACID-SODIUM CITRATE 15 ML CUP PO ONE (06:00)
[2021-12-30] MEDS ORDERED: HYDROmorphone 0.5 MG/0.5 ML SYRINGE IVP PRN ×2 (06:35→08:06)
[2021-12-30] MEDS ORDERED: KETOROLAC 15 MG/ML 1 ML VIAL IVP PRN (06:35)
[2021-12-30] MEDS ORDERED: diphenhydrAMINE 50 MG/ML 1 ML VIAL IVP PRN ×3 (06:35→08:06)
[2021-12-30] MEDS ORDERED: NALOXONE 0.4 MG/ML 1 ML VIAL IV PRN ×2 (06:35→08:06)
[2021-12-30] MEDS ORDERED: ONDANSETRON 4 MG/2 ML VIAL IVP PRN ×2 (06:35→08:06)
--- NOTE | 2021-12-30 06:47 | P.OP ---
Date of Procedure: 12/30/21 Preoperative Diagnosis: 1. Intrauterine at 38-6/7 weeks. 2. Breech presentation. 3. Spontaneous rupture of membranes. Postoperative Diagnosis: Same Procedure(s) Performed: Primary low transverse section Anesthesia: spinal (Duramorph) Surgeon: Katheryn Dash Visual Aid Expert #1: Charlee Herrera Estimated Blood Loss (ml): 400 Pathology: none sent Condition: stable Disposition: floor Indications for Procedure: This is a 31-year-old female 4 para 1 who initially presented at 38-5/7 weeks with complaints of spontaneous rupture of membranes. She had just eaten approximately an hour before hand and therefore surgery was delayed for 8 hours after eating. She was found to be ruptured but not in active labor at the time of admission. Baby was confirmed to be in a breech presentation. I have discussed the risks, benefits, and alternative therapies for the above- mentioned procedure and for both sedation/anesthesia as well as necessary blood products administration, if indicated, as they pertain to this patient. The patient has indicated her understanding and acceptance of the risks and procedures discussed. Operative Findings: A viable female is noted in the vertex presentation with scores of 8 at 1 minute and 9 at 5 minutes and infant weight of 7 lbs. 14 oz. Normal uterus and ovaries are noted. There is evidence of previous left partial salpingectomy due to ectopic . Description of Procedure: The patient is taken to the operating room where she is placed in the dorsal supine position with leftward tilt after spinal Duramorph anesthesia is given. She is prepped and draped in the normal sterile fashion. Skin was tested and found to be adequately anesthetized. A Pfannenstiel skin incision was made with a scalpel through the previous laparotomy scar. A second knife was used to carry the incision down to the underlying layer of fascia. The fascia was nicked in the midline with a scalpel and then extended laterally bilaterally wit h Del Rio scissors. The anterior lip of the fascia was grasped with 2 Debbie clamps and then dissected off the underlying rectus muscle in the midline with Del Rio scissors. The inferior aspect of the fascial incision was grasped with 2 Debbie clamps and dissected off the underlying rectus muscle and the midline with Del Rio scissors. Next the peritoneum layer was tented up with 2 hemostats and then entered sharply with the scalpel. The incision is extended superiorly and inferiorly with Metzenbaum scissors. Next a DeLee retractor is placed. The vesicouterine peritoneum is entered sharply with Metzenbaum scissors and extended laterally bilaterally with Metzenbaum scissors and then the bladder flap is pushed inferiorly. The lower uterine segment is incised in transverse fashion with the scalpel and then bluntly entered with a hemostat. Clear fluid is noted. The incision was then extended laterally bilaterally with 2 fingers. Next the 's buttocks is delivered through the incision followed by the trunk, each leg was then delivered followed by the arms followed by the head in a flexed position. Nose and mouth are bulb suctioned. Cord is clamped and cut. is taken to warmer by nursing staff. Uterine fundus is gently massaged and placenta is delivered manually. Uterus is exteriorized and cleared of all clots and debris. Uterine incision is closed with 0 Vicryl suture in a running locked fashion. A second layer of 0 Vicryl suture is used in a running fashion for hemostasis. Once adequate hemostasis as assured, the vesicouterine peritoneum is reapproximated with 2-0 Vicryl suture in a running fashion. Posterior cul-de-sac is suctioned of all clots and debris. Uterus is returned to the abdomen. Incision is noted to be hemostatic. Peritoneal layer is closed with 0 Vicryl suture in a running fashion. Muscle layer is reapproximated with 0 Vicryl suture in interrupted fashion. Fascia layer is then closed with 0 PDS suture with 2 sutures meeting in the midline and the knots buried in either side and in the midline. The subcutaneous tissue was then closed with 2-0 Vicryl suture. Skin layer was then closed with karley. All sponge and needle counts are correct. The patient is taken to recovery room in stable condition.
[2021-12-30] MEDS ORDERED: diphenhydrAMINE 25 MG CAP PO PRN (08:06)
[2021-12-30] MEDS ORDERED: HYDROmorphone 1 MG/ML 1 ML SYRINGE IVP PRN (08:06)
[2021-12-30] MEDS ORDERED: SIMETHICONE 80 MG CHEWABLE PO PRN (08:06)
[2021-12-30] MEDS ORDERED: ZOLPIDEM 5 MG TAB PO PRN (08:06)
[2021-12-30] MEDS ORDERED: OXYTOCIN 30 UNITS/500 ML NS 30 UNIT in SALINE 1 500ML.BAG IV SCH (08:06)
[2021-12-30] MEDS ORDERED: LANOLIN CREAM 5 GM TUBE TOPICAL PRN (08:06)
[2021-12-30] MEDS ORDERED: diphenhydrAMINE 50 MG CAP PO PRN (08:06)
--- NOTE | 2021-12-30 08:34 | US ---
EXAMINATION TYPE: US OB limited DATE OF EXAM: 12/30/2021 COMPARISON: NONE CLINICAL HISTORY: Confirm lie. US to confirm lie EXAM PERFORMED: GESTATIONAL AGE / DATING Physician Established: (38 weeks/6 days) EDC: 01/07/22 No growth performed on today?s study per ordering physician LIE: Breech HEART RATE: 144 bpm RHYTHM: Normal IMPRESSION: Limited exam to assess position demonstrates a breech position.
[2021-12-30] MEDS: SENNOSIDES-DOCUSATE SODIUM 1 EACH TAB PO SCH (09:08)
[2021-12-30] MEDS: ACETAMINOPHEN IV (For NPO) 1,000 MG in EMPTY BAG 1 BAG IVPB SCH ×2 (09:09→15:13)
[2021-12-30] MEDS: METOCLOPRAMIDE 5 MG/ML 2 ML VIAL IVP PRN ×2 (09:52→15:46)
[2021-12-30] MEDS: IBUPROFEN 600 MG TAB PO SCH ×2 (12:22→18:42)
[2021-12-30] MEDS: KETOROLAC 15 MG/ML 1 ML VIAL IVP SCH ×2 (12:52→18:41)
[2021-12-30 18:44] VITALS: RESP 16
[2021-12-31] MEDS: IBUPROFEN 600 MG TAB PO SCH ×5 (03:27→23:43)
[2021-12-31] MEDS: SENNOSIDES-DOCUSATE SODIUM 1 EACH TAB PO SCH ×3 (03:27→20:53)
[2021-12-31] MEDS: KETOROLAC 15 MG/ML 1 ML VIAL IVP SCH ×3 (03:47→13:53)
[2021-12-31 08:17] LABS: Basophils % (A) 0 %; Eosinophils # (A) 0.1 k/uL (0-0.7); Eosinophils % (A) 1 %; HCT 24.4 % (34.0-46.0); Lymphocytes # (A) 1.6 k/uL (1.0-4.8); Lymphocytes % (A) 20 %; MCH 31.1 pg (25.0-35.0); MCHC 34.4 g/dL (31.0-37.0); MCV 90.5 fL (80.0-100.0); Mean Platelet Volume 9.5; Monocytes # (A) 0.5 k/uL (0-1.0); Monocytes % (A) 6 %; Neutrophils # (A) 5.6 k/uL (1.3-7.7); Neutrophils % (A) 70 %; Platelet Count 141 k/uL (150-450); Poikilocytosis Slight; RDW 14.1 % (11.5-15.5); WBC 7.9 k/uL (3.8-10.6)
[2021-12-31 08:22] LABS: HGB 8.4 gm/dL (11.4-16.0)
--- NOTE | 2021-12-31 08:27 | P.PN ---
Progress Note - Text Date: 12/31/2021 Time: 7:07 The patient is status post section Vital signs stable VAS: 0-10 Patient has no complaints of pain. The patient incurred some minimal itching yesterday, this itching is now subsiding. Pain meds to be managed by service.
[2021-12-31] MEDS: ACETAMINOPHEN TAB 500 MG TAB PO SCH ×4 (09:11→20:55)
[2021-12-31] MEDS: LACTATED RINGERS 1,000 ML IV SCH ×3 (10:12→13:53)
--- NOTE | 2021-12-31 13:20 | P.PNOBGPC ---
Subjective - Subjective Principal diagnosis: Status post primary section postoperative day #1 Interval history: Patient is doing okay. She was seen this morning and her Campos catheter was still in place and she had some low urine output through the day yesterday. This has improved now and will be removed. She is not ambulated very much yet. She is not passing flatus or bowel movement yet. Pain is fairly well controlled at this time. She is working on breast-feeding. Bleeding has been minimal. Patient reports: Reports appetite normal, Reports pain well controlled [place]: doing well, nursing well Objective - Vital Signs Latest vital signs: Vital Signs Temp Pulse Resp BP Pulse Ox 12/31/21 08:00 98.2 F 89 16 118/75 99 12/31/21 06:00 16 12/31/21 03:56 98.3 F 68 16 126/64 12/31/21 03:55 16 98 12/31/21 02:00 16 12/31/21 00:00 98.6 F 68 16 128/64 12/30/21 23:45 16 96 12/30/21 22:00 16 12/30/21 20:00 98.2 F 80 16 133/84 100 12/30/21 18:00 16 12/30/21 15:38 97.7 F 67 18 124/78 99 12/30/21 13:48 18 Intake and Output 12/30/21 12/31/21 12/31/21 22:59 06:59 14:59 Output Total 605 1700 1200 Balance -605 -1700 -1200 Output: Urine 505 1700 1200 Uretheral (Campos) 400 Emesis 100 Other: # Voids 1 - Exam Extremities: Present: normal Abdomen: Present: normal appearance, soft (Positive bowel sounds 4). Absent: distention, tenderness Incision: Present: normal, dry, intact. Absent: erythematous Uterus: Present: normal, firm. Absent: tenderness - Labs Labs: Abnormal Lab Results - Last 24 Hours (Table) 12/31/21 Range/Units 07:23 RBC 2.70 L (3.80-5.40) m/uL Hgb 8.4 L D (11.4-16.0) gm/dL Hct 24.4 L (34.0-46.0) % Plt Count 141 L (150-450) k/uL Assessment and Plan Assessment: Status post primary low transverse section postoperative day #1 (1) 38 weeks gestation of Current Visit: Yes Status: Acute Code(s): Z3A.38 - 38 WEEKS GESTATION OF RI EGNANCY SNOMED Code(s): 42905840 (2) Spontaneous rupture of membranes Current Visit: Yes Status: Acute Code(s): QAF7552 - SNOMED Code(s): 149196132 (3) Breech presentation Current Visit: Yes Status: Acute Code(s): O32.1XX0 - MATERNAL CARE FOR BREECH PRESENTATION, UNSP SNOMED Code(s): 3820248 Plan: Encouraged ambulation. Will advance diet as tolerated after flatus. Will switch to oral pain medications.
[2022-01-01] MEDS: ACETAMINOPHEN TAB 500 MG TAB PO SCH ×2 (04:12→11:11)
--- NOTE | 2022-01-01 08:26 | P.DS ---
Providers Date of admission: 12/29/21 23:54 Expected date of discharge: 01/01/22 Attending physician: Esvin Arriaga Primary care physician: Stated None - Discharge Diagnosis(es) (1) 38 weeks gestation of Current Visit: Yes Status: Acute (2) Spontaneous rupture of membranes Current Visit: Yes Status: Acute (3) Breech presentation Current Visit: Yes Status: Acute Hospital Course: This is a 31-year-old female 4 para 1 who presented with spontaneous rupture membranes on 12/29/2021 and baby was found to be in breech presentation. She was 38-5/7 weeks at that time and then delivered on 12/30/2021 via section a viable female infant with scores of 8 at 1 minute and 9 at 5 minutes and weight of 7 lbs. 14 oz. Her postoperative course has been uncomplicated. Lochia is decreasing. She is passing flatus. No bowel movement yet. She is urinating without difficulty. She is pumping her breast milk. Vital signs are stable. Abdomen is soft with fundus firm and nontender. E xtremities show negative Homans. Impression is status post primary low transverse section postoperative day #2. Plan is to discharge home today. Routine postoperative and instructions are given. She is advised to follow up with Dr. Arriaga in the office in 1 week for a postoperative check and in 6 weeks for check. She is advised to call the office if she has any further questions or concerns prior to her appointment time. She has a breast pump at home. She is currently pumping her breast milk and bottlefeeding. Procedures: Primary low transverse section on 12/30/2021 Patient Condition at Discharge: Stable Plan - Discharge Summary New Discharge Prescriptions: New Ibuprofen [Motrin] 600 mg PO Q6H #60 tab Continue Acetaminophen/Diphenhydramine [Tylenol PM 500-25mg] 1 tab PO HS Discharge Medication List Acetaminophen/Diphenhydramine [Tylenol PM 500-25mg] 1 tab PO HS 12/29/21 [History] Ibuprofen [Motrin] 600 mg PO Q6H #60 tab 01/01/22 [Rx] Follow up Appointment(s)/Referral(s): Esvin Arriaga MD [STAFF PHYSICIAN] - 02/11/22 8:45 am (Post Op Appointment 07-05-2022 at 1:30) Activity/Diet/Wound Care/Special Instructions: Instructions 1. Do not begin any exercise program for 3 weeks. 2. Do not resume sexual relations for 3 weeks or longer if uncomfortable. 3. You may take tub baths or showers at any time. 4. You may use tampons if desired after 3 weeks. 5. Keep the area of episiotomy (stitches) clean and dry. 6. If you are not nursing, wear a good fitting, supportive bra during the day and limit fluid intake for at least 1 week to prevent breast engorgement. 7. Call the office, [phone], within the next week to make appointment for your 6 week checkup if it has not already been made. 8. Report any of the following occurrences to the doctor promptly: a. Heavy, excessive bleeding b. Chills, fever c. Burning or frequency of urination d. Pain or redness and breasts if nursing e. Increasing pain or swelling in episiotomy (stitches). In addition to the above instructions, the following additional should be followed: 1. No heavy lifting or straining (exercising) until after 6 week checkup. 2. Keep abdominal incision clean and dry: You may wear a dressing if more comfortable. 3. Make office appointment for 10 days after going home or as instructed by her doctor. Discharge Disposition: HOME SELF-CARE
[2022-01-01] MEDS: IBUPROFEN 600 MG TAB PO SCH (08:30)
[2022-01-01] MEDS: SENNOSIDES-DOCUSATE SODIUM 1 EACH TAB PO SCH (08:31)
[2022-01-01 10:15] VITALS: BP 129/90; PULSE 72; TEMP 97.5
== END 2022-01-01 13:30 | disposition home or self-care (01) | DRG 788 ==
LOC: FBPOP 23:13 → 4FBP 23:54
PROVIDERS: ADMIT Obstetrics & Gynecology; ATTEND Obstetrics & Gynecology
PROC: 10D00Z1 Extraction of Products of Conception, Low, Open Approach (ICD-10-PCS; principal; 2021-12-30 06:00)
DX: O32.1XX0 Maternal care for breech presentation, not applicable or unspecified (principal); O42.92 Full-term premature rupture of membranes, unspecified as to length of time between rupture and onset of labor; O99.73 Diseases of the skin and subcutaneous tissue complicating the puerperium; L29.9 Pruritus, unspecified; Z37.0 Single live birth; Z3A.38 38 weeks gestation of pregnancy; Z87.891 Personal history of nicotine dependence; Z87.59 Personal history of other complications of pregnancy, childbirth and the puerperium
CPT/HCPCS: 59025; 76815; 84112; 85025; 86850; 86900; 86901; 99213

== ENCOUNTER 2023-05-27 05:00 | Inpatient (IN) | payer BC, OTHER ==
[2023-05-24 15:46] VITALS: BMI 38.7
--- NOTE | 2023-05-26 12:21 | P.HPOB ---
History of Present Illness H&P Date: 05/26/23 Chief Complaint: Repeat section and requesting permanent sterilization This patient is a pleasant 32-year-old 6 para 2 female estimated date of confinement 06/02/2023 estimated gestational age 39 weeks who presents to labor and delivery for requested repeat section was also requesting permanent sterilization. Patient's history is such that she had a vaginal delivery with her first baby however had to have a section for her second baby due to breech. I discussed options with the patient including versus repeat section as requested repeat section. Patient also desires permanent sterilization. has been uncomplicated. Review of Systems Genitourinary: Reports Menstruation: Reports amenorrhea Past Medical History Past Medical History: No Reported History Additional Past Medical History / Comment(s): Hx ectopic 04/2019, missed 2019. History of Any Multi-Drug Resistant Organisms: None Reported Past Surgical History: Section Additional Past Surgical History / Comment(s): Left salpingectomy 2018, wisdom teeth removed 2015, D&C. Past Anesthesia/Blood Transfusion Reactions: Postoperative Nausea & Vomiting (PONV) Additional Past Anesthesia/Blood Transfusion Reaction / Comment(s): Nausea with last Section. Past Psychological History: No Psychological Hx Reported Smoking Status: Former smoker Past Alcohol Use History: Occasional Additional Past Alcohol Use History / Comment(s): Quit smoking 7-8 yrs ago, smoked 3-4 yrs <ppd. No alcohol use during . Past Drug Use History: None Reported - Past Family History Father Family Medical History: No Reported History Medications and Allergies Home Medications Medication Instructions Recorded Confirmed Type Acetaminophen [Tylenol Extra 500 mg PO DIRECTED PRN 05/24/23 05/24/23 History Strength] Allergies Allergy/AdvReac Type Severity Reaction Status Date / Time No Known Allergies Allergy Verified 05/24/23 15:15 Exam - OBG Physical Exam Abdomen: bowel sounds normal, no diffuse tenderness, no bruit present, no guarding noted, no hepatomegaly, no splenomegaly, no mass Vulva: both: normal Vagina: normal moisture, no discharge Cervix: no lesion, no discharge Uterus: enlarged (Fundal height 42 cm) Results labs show she is O positive, rubella immune, RPR nonreactive, hepatitis B and C negative, HIV is nonreactive, Glucola was normal, group B strep was negative, most recent growth ultrasounds shows estimated weight at 6 lbs. 5 oz. and that was on April 29. Assessment and Plan Assessment: This is a pleasant 32-year-old 6 para 2 female 39 weeks gestation who presents to labor and delivery for elective repeat section also requesting permanent sterilization. Plan is repeat low transverse section and bilateral partial salpingectomy. Patient understands that a tubal ligation is considered permanent although there is a failure rate of less than 5 per thousand procedures done. She also understands that surgery itself and apparently has risks including risks of infection, bleeding, possible injury to bowel, bladder, vessels, and/or other organs. All the patient's questions are answered and a written consent is obtained. (1) 39 weeks gestation of Status: Acute Code(s): Z3A.39 - 39 WEEKS GESTATION OF SNOMED Code(s): 79610093 (2) Previous delivery affecting Status: Acute Code(s): O34.219 - MATERNAL CARE FOR UNSP TYPE SCAR FROM PREVIOUS DEL SNOMED Code(s): 398444364 (3) Family planning Status: Acute Code(s): Z30.09 - ENCOUNTER FOR OTH GENERAL CNSL AND ADVICE ON CONTRACEPTION SNOMED Code(s): 266980027
[2023-05-27] MEDS ORDERED: LACTATED RINGERS 1,000 ML IV ONE (05:06)
[2023-05-27] MEDS ORDERED: OXYTOCIN 10 UNIT/ML 1 ML VIAL IM PRN (05:06)
[2023-05-27] MEDS ORDERED: CITRIC ACID-SODIUM CITRATE 15 ML CUP PO ONE (05:06)
[2023-05-27] MEDS ORDERED: METHYLERGONOVINE 0.2 MG/ML 1 ML AMP IM PRN (05:06)
[2023-05-27] MEDS ORDERED: TRANEXAMIC 1,000 MG/100ML-NACL 1,000 MG in EMPTY BAG 1 BAG IV PRN (05:06)
[2023-05-27] MEDS ORDERED: CARBOPROST TROMETHAMINE 250 MCG/ML 1 ML AMP IM PRN (05:06)
[2023-05-27] MEDS ORDERED: miSOPROStoL 200 MCG TAB PO PRN (05:06)
[2023-05-27] MEDS: LACTATED RINGERS 1,000 ML IV SCH ×4 (05:27→20:55)
[2023-05-27 06:08] LABS: Basophils % (A) 0 %; Eosinophils # (A) 0.1 k/uL (0-0.7); Eosinophils % (A) 2 %; HCT 33.1 % (34.0-46.0); HGB 11.6 gm/dL (11.4-16.0); Lymphocytes # (A) 1.8 k/uL (1.0-4.8); Lymphocytes % (A) 25 %; MCH 30.9 pg (25.0-35.0); MCHC 35.2 g/dL (31.0-37.0); Mean Platelet Volume 9.4; Monocytes # (A) 0.3 k/uL (0-1.0); Monocytes % (A) 5 %; Neutrophils # (A) 4.8 k/uL (1.3-7.7); Neutrophils % (A) 68 %; Platelet Count 177 k/uL (150-450); RBC 3.77 m/uL (3.80-5.40); RDW 13.4 % (11.5-15.5); WBC 7.2 k/uL (3.8-10.6)
[2023-05-27] MEDS ORDERED: KETOROLAC 15 MG/ML 1 ML VIAL ONE (07:00)
[2023-05-27] MEDS ORDERED: ONDANSETRON 4 MG/2 ML VIAL ONE (07:00)
[2023-05-27] MEDS ORDERED: OXYTOCIN 30 UNITS/500 ML NS BAG IV ONE (07:00)
[2023-05-27] MEDS ORDERED: DEXAMETHASONE SOD PHOSPHATE 4 MG/ML 1 ML VIAL ONE (07:00)
[2023-05-27] MEDS ORDERED: MORPHINE SULFATE (PF) 0.3 MG/0.3 ML SYR ONE (07:00)
--- NOTE | 2023-05-27 07:51 | P.OP ---
Date of Procedure: 05/27/23 Preoperative Diagnosis: #1: 39 and one sevenths week intrauterine . #2: Previous section desires repeat. #3: Multi parity desires permanent sterilization Postoperative Diagnosis: Same Procedure(s) Performed: Repeat low transverse section and right partial salpingectomy (previous left partial salpingectomy) Anesthesia: spinal Surgeon: Esvin Arriaga Plant Technician #1: Katheryn Dash Estimated Blood Loss (ml): 600 Pathology: other (Right fallopian tube segment) Condition: stable Disposition: floor Indications for Procedure: Please see dictated H&P for intimate details of this patient's admission. Brief summary this pleasant 32-year-old 6 para 2 female 39 and one sevenths weeks gestation admitted to labor and delivery for requested repeat section and also requesting permanent sterilization. Patient understands this surgery and risks and risks of infection, bleeding, possible injury bowel, bladder, vessels, and/or other organs. Patient also understands a tubal ligation is considered permanent although there is a failure rate of less than 5 per thousand procedures done. All the patient's questions are answered and a written consent is obtained. Operative Findings: Patient had a vigorous viable male infant Apgars 8 and 8 delivery time is 0716 hrs. Infant has spontaneous respirations and good cry and grossly appeared normal. Patient's right fallopian tube and ovary were normal. Patient's left ovary was normal however she had a previous left partial salpingectomy from her previous ectopic. Description of Procedure: This patient has a Campos catheter placed to straight drain. She separately taken to the operating room where she sat up and spinal anesthetic is administered without incident. With an adequate level of anesthesia she has a bdominal prep and drape. Scalpels and taken previous Pfannenstiel incision is incised. A second scalpel is taken down the fascia the fascia scored with a knife. Fascial incision extended bilaterally using the Del Rio scissors. Fascia is then dissected off the rectus muscles sharply. Rectus muscles are the peritoneum was identified and entered sharply. Peritoneal incision extended superior and inferior without difficulty. Bladder blade is then placed. Bladder peritoneum was then taken sharply off the lower uterine segment. Scalpels and taken a low transverse uterine incision is made. Using a hemostat I gently into the uterine cavity bluntly and there is loss of clear fluid. This incision is extended bluntly. The infant's head is then guided through the incision with fundal pressure delivered. Mouth and nares are bulb suctioned. There is no evidence of nuchal cord. With more fundal pressure I then deliver the rest of this 's body. This is a vigorous viable male infant Apgars are 8 and 8 delivery time was 0716 hrs. has spontaneous respiration and good cry and grossly appears normal. After delivery of the infant the umbilical cord is doubly clamped and cut appears to be trivascular. The placenta is then manually extracted intact. Uterus is then externalized and the uterine incision demarcated with Garcia clamps. Uterine incision then closed using 0 Vicryl running fashion. 2 layers. Excellent hemostasis is noted. Bladder peritoneum was then reapproximated using a 3-0 Vicryl. Then turned my attention to the right fallopian tube. Approximately 4 cm from its cornual insertion a small window is made to the mesial salpinx with Bovie cautery. Using a 2-0 silk I doubly ligated 2 cm segment of tube and this is excised and handed off to pathology. Of note the patient did have a previous left partial salpingectomy in that tube appeared to be removed and completely occluded. With this done excess fluid is removed from the abdomen and pelvis. Uterus placed back into the abdomen. Final inspection showed good hemostasis. The peritoneum was then identified with hemostats and closed using 0 Vicryl running fashion. Rectus muscles reapproximated in 0 Vicryl interrupted fashion. Fascial incision is then closed using 0 PDS. Fascial incision is intact and hemostatic. Subcutaneous tissues and closed using a 3-0 Vicryl. Skin is and closed using karley. All counts are correct 3. There are no complications. and mother are taken to the birthing suite in satisfactory condition.
[2023-05-27] MEDS ORDERED: NALOXONE 0.4 MG/ML 1 ML VIAL IV PRN (08:27)
[2023-05-27] MEDS ORDERED: ZOLPIDEM 5 MG TAB PO PRN (08:27)
[2023-05-27] MEDS ORDERED: LANOLIN CREAM 5 GM TUBE TOPICAL PRN (08:27)
[2023-05-27] MEDS ORDERED: diphenhydrAMINE 50 MG/ML 1 ML VIAL IVP PRN (08:27)
[2023-05-27] MEDS ORDERED: ONDANSETRON 4 MG/2 ML VIAL IVP PRN (08:27)
[2023-05-27] MEDS ORDERED: METOCLOPRAMIDE 5 MG/ML 2 ML VIAL IVP PRN (08:27)
[2023-05-27] MEDS ORDERED: OXYTOCIN 30 UNITS/500 ML NS 30 UNIT in SALINE 1 500ML.BAG IV SCH (08:27)
[2023-05-27] MEDS ORDERED: SIMETHICONE 80 MG CHEWABLE PO PRN (08:27)
[2023-05-27] MEDS ORDERED: diphenhydrAMINE 25 MG CAP PO PRN (08:27)
[2023-05-27] MEDS: SENNOSIDES-DOCUSATE SODIUM 1 EACH TAB PO SCH ×2 (10:17→20:51)
[2023-05-27] MEDS: ACETAMINOPHEN TAB 500 MG TAB PO SCH ×2 (11:32→18:38)
[2023-05-27] MEDS: KETOROLAC 15 MG/ML 1 ML VIAL IVP SCH ×2 (15:10→22:50)
[2023-05-27] MEDS: IBUPROFEN 600 MG TAB PO SCH ×2 (15:13→20:22)
[2023-05-28] MEDS: ACETAMINOPHEN TAB 500 MG TAB PO SCH ×5 (00:06→20:52)
[2023-05-28] MEDS: LACTATED RINGERS 1,000 ML IV SCH ×4 (00:49→12:49)
[2023-05-28] MEDS: IBUPROFEN 600 MG TAB PO SCH ×4 (03:43→18:05)
[2023-05-28 06:52] LABS: Basophils % (A) 0 %; Eosinophils # (A) 0.1 k/uL (0-0.7); Eosinophils % (A) 1 %; HCT 30.7 % (34.0-46.0); HGB 10.3 gm/dL (11.4-16.0); Lymphocytes # (A) 2.1 k/uL (1.0-4.8); Lymphocytes % (A) 24 %; MCH 30.2 pg (25.0-35.0); MCHC 33.5 g/dL (31.0-37.0); MCV 90.2 fL (80.0-100.0); Mean Platelet Volume 9.8; Monocytes # (A) 0.3 k/uL (0-1.0); Monocytes % (A) 4 %; Neutrophils # (A) 6.1 k/uL (1.3-7.7); Neutrophils % (A) 70 %; Platelet Count 144 k/uL (150-450); RDW 13.8 % (11.5-15.5); WBC 8.7 k/uL (3.8-10.6)
[2023-05-28] MEDS: KETOROLAC 15 MG/ML 1 ML VIAL IVP SCH (07:33)
--- NOTE | 2023-05-28 07:41 | P.PNOBGPC ---
Subjective - Subjective Patient reports: Reports appetite normal, Reports voiding normally, Reports pain well controlled, Reports ambulating normally : doing well Objective - Vital Signs Latest vital signs: Vital Signs Temp Pulse Resp BP Pulse Ox 05/28/23 03:48 97.7 F 78 16 127/83 97 05/28/23 00:00 97.9 F 85 16 118/78 97 05/27/23 20:00 97.7 F 77 16 113/77 97 05/27/23 17:00 98.2 F 80 16 132/82 99 05/27/23 12:00 97.9 F 88 16 119/69 97 05/27/23 09:44 98.8 F 59 L 16 121/64 98 05/27/23 09:14 54 L 16 110/75 97 05/27/23 08:44 71 16 115/70 97 05/27/23 08:29 73 16 118/70 97 05/27/23 08:14 61 16 115/63 97 05/27/23 07:59 74 16 111/64 94 L 05/27/23 07:44 96.5 F L 75 16 120/56 99 Intake and Output 05/27/23 05/28/23 05/28/23 22:59 06:59 14:59 Output Total 2000 500 Balance -2000 -500 Output: Urine 2000 500 Uretheral (Campos) 1000 Other: # Voids 1 1 - Exam Lungs: bilateral: normal Chest: Normal S1, Normal S2 Extremities: Present: normal Abdomen: Present: normal appearance, soft. Absent: distention, tenderness Incision: Present: normal, dry, intact Uterus: Present: normal, firm - Labs Labs: Abnormal Lab Results - Last 24 Hours (Table) 05/28/23 Range/Units 06:28 RBC 3.40 L (3.80-5.40) m/uL Hgb 10.3 L (11.4-16.0) gm/dL Hct 30.7 L (34.0-46.0) % Plt Count 144 L (150-450) k/uL Assessment and Plan Assessment: Postoperative day #1. Patient is resting without new complaints. Vital signs are stable she is afebrile. Uterus is firm nontender and her incision is intact and dry. CBC is normal. Plan today is to encourage ambulation, allow the patient to shower, and continue routine postoperative care. (1) 39 weeks gestation of Current Visit: No Status: Acute Code(s): Z3A.39 - 39 WEEKS GESTATION OF SNOMED Code(s): 58498555 (2) Previous delivery affecting Current Visit: No Status: Acute Code(s): O34.219 - MATERNAL CARE FOR UNSP TYPE SCAR FROM PREVIOUS DEL SNOMED Code(s): 027345294 (3) Family planning Current Visit: No Status: Acute Code(s): Z30.09 - ENCOUNTER FOR OTH GENERAL CNSL AND ADVICE ON CONTRACEPTION SNOMED Code(s): 816100196
[2023-05-28] MEDS: SENNOSIDES-DOCUSATE SODIUM 1 EACH TAB PO SCH ×2 (08:43→21:15)
--- NOTE | 2023-05-28 11:13 | P.PN ---
Progress Note - Text 05/28/23 89am -year-old female status post with spinal Duramorph. Patient seen and evaluated for postop pain control, patient has a VAS of 4. She has no complains of nausea vomiting she does have pruritus which should subside soon.
[2023-05-29] MEDS: IBUPROFEN 600 MG TAB PO SCH ×2 (00:29→08:08)
[2023-05-29] MEDS: ACETAMINOPHEN TAB 500 MG TAB PO SCH ×2 (04:27→10:33)
--- NOTE | 2023-05-29 07:31 | P.PNOBGPC ---
Subjective - Subjective Patient reports: Reports appetite normal, Reports voiding normally, Reports pain well controlled, Reports ambulating normally : doing well Objective - Vital Signs Latest vital signs: Vital Signs Temp Pulse Resp BP Pulse Ox 05/29/23 00:00 97.0 F L 76 16 116/80 99 05/28/23 16:00 97.5 F L 88 16 126/83 99 05/28/23 08:00 97.7 F 67 16 125/84 99 - Exam Lungs: bilateral: normal Chest: Normal S1, Normal S2 Extremities: Present: normal Abdomen: Present: normal appearance, soft. Absent: distention, tenderness Incision: Present: normal, dry, intact Uterus: Present: normal, firm Assessment and Plan Assessment: Postoperative day #2. Patient is resting without complaints and wishes to go. Vital signs are stable she is afebrile. Uterus is firm nontender she is having normal lochia. My impression this is a normal course. Plan is to continue routine postoperative care discharge home later today (1) 39 weeks gestation of Current Visit: No Status: Acute Code(s): Z3A.39 - 39 WEEKS GESTATION OF SNOMED Code(s): 60694384 (2) Previous delivery affecting Current Visit: No Status: Acute Code(s): O34.219 - MATERNAL CARE FOR UNSP TYPE SCAR FROM PREVIOUS DEL SNOMED Code(s): 005396391 (3) Family planning Current Visit: No Status: Acute Code(s): Z30.09 - ENCOUNTER FOR OTH GENERAL CNSL AND ADVICE ON CONTRACEPTION SNOMED Code(s): 196595021
--- NOTE | 2023-05-29 07:35 | P.DS ---
Providers Date of admission: 05/27/23 05:00 Expected date of discharge: 05/29/23 Attending physician: Esvin Arriaga Primary care physician: Stated None - Discharge Diagnosis(es) (1) 39 weeks gestation of Current Visit: No Status: Acute (2) Previous delivery affecting Current Visit: No Status: Acute (3) Family planning Current Visit: No Status: Acute Hospital Course: Please see dictated H&P for intimate details of this patient's admission. In brief summary is a pleasant 32-year-old 6 para 2 female 39 and one sevenths weeks gestation admitted to labor and delivery for elective repeat section and tubal ligation. Patient undergoes above-named surgery for viable male infant. Please see dictated delivery note. Postoperative patient does well postoperative 2 felt be stable for discharge home follow up with me in 1 week. Procedures: Repeat low transverse section and right partial salpingectomy Patient Condition at Discharge: Good Plan - Discharge Summary Discharge Rx Participant: Yes New Discharge Prescriptions: New Ibuprofen [Motrin] 600 mg PO Q6HR PRN #40 tab PRN Reason: Pain Ibuprofen [Motrin] 600 mg PO Q6H #40 tab oxyCODONE HCL [OxyIR] 5 mg PO Q4HR PRN #18 tab PRN Reason: Pain Scale 4 - 6 No Action Acetaminophen [Tylenol Extra Strength] 500 mg PO DIRECTED PRN PRN Reason: Pain Discharge Medication List Acetaminophen [Tylenol Extra Strength] 500 mg PO DIRECTED PRN 05/24/23 [History] Ibuprofen [Motrin] 600 mg PO Q6H #40 tab 05/28/23 [Rx] Ibuprofen [Motrin] 600 mg PO Q6HR PRN #40 tab 05/28/23 [Rx] oxyCODONE HCL [OxyIR] 5 mg PO Q4HR PRN #18 tab 05/28/23 [Rx] Follow up Appointment(s)/Referral(s): Esvin Arriaga MD [STAFF PHYSICIAN] - 1 Week (Please see me for a incision check on 06/06/23 @9:00Am Also please see me for a visit on 07/06/23 @3:15 Pm) Patient Instructions/Handouts: (DC) Activity/Diet/Wound Care/Special Instructions: No heavy lifting or strenuous activity for 6 weeks. No intercourse or anything per vagina for 6 weeks. Please call if any fever, chills, excessive vaginal bleeding, and/or abdominal pain Discharge Disposition: HOME SELF-CARE
[2023-05-29] MEDS: SENNOSIDES-DOCUSATE SODIUM 1 EACH TAB PO SCH (08:09)
[2023-05-29 08:21] VITALS: BP 125/87; PULSE 85; RESP 17; TEMP 97.2
== END 2023-05-29 11:05 | disposition home or self-care (01) | DRG 785 ==
LOC: 4FBP 05:00
PROVIDERS: ADMIT Obstetrics & Gynecology; ATTEND Obstetrics & Gynecology
PROC: 0UB50ZZ Excision of Right Fallopian Tube, Open Approach (ICD-10-PCS; 2023-05-27)
PROC: 10D00Z1 Extraction of Products of Conception, Low, Open Approach (ICD-10-PCS; principal; 2023-05-27 07:00)
DX: O34.211 Maternal care for low transverse scar from previous cesarean delivery (principal); Z30.2 Encounter for sterilization; Z37.0 Single live birth; Z3A.39 39 weeks gestation of pregnancy; Z87.891 Personal history of nicotine dependence
CPT/HCPCS: 85025; 86850; 86900; 86901